=== PATIENT | male | born 1985 | race Caucasian/White ===

== ENCOUNTER 2025-01-12 22:00 | Inpatient (IN) | payer BC, OTHER ==
[~2025-01-12] VITALS: Ht 180.3 cm; Wt 63.7 kg
--- NOTE | 2025-01-12 22:10 | ED.PDOC ---
GI ASSESSMENT HPI Comments 39 year old male presents to the ED via [employer] [facility] due DKA onset today. Patient was transferred from [facility] due to DKA, N-stemi, elevated troponin, last trop was 0.39. Patient states he initially went to the ED due to nausea/vomiting, elevated blood glucose, was concerned for DKA. Patient states he is currently experiencing throat pain. Denies fever, chills, chest pain, shortness of breath, headache, dizziness, blurred vision, dysuria, hematuria, hematemesis. No other symptoms or modifying factors present at this time. Chief Complaint: Nausea/Vomiting Time Seen by MD: 22:00 Reviewed Notes: Medications, Allergies Allergies: Coded Allergies: No Known Drug Allergy (Verified Allergy, Unknown, 01/12/25) Information Source: Patient, Emergency Med Personnel Mode of Arrival: EMS Timing: Hours Duration: Since onset Prehospital treatment: Other Severity: Moderate Recent: None Recent Hx of: None Pain Location: Diffuse Modifying Factors: Nothing Associated sign and symptoms: Nausea, Vomiting Vital Signs Vital Signs Date Time Temp Pulse Resp B/P (MAP) Pulse Ox O2 Delivery O2 Flow Rate FiO2 01/13/25 04:00 95 01/13/25 04:00 15 120/65 (83) 94 01/12/25 22:15 Room Air* 0 21 01/12/25 22:15 99.4 99.4 Physical Exam PHYSICAL EXAM: General: Awake, alert and oriented. No acute distress. Skin: Skin in warm, dry and intact. Appropriate color for ethnicity. HEENT: The head is normocephalic and atraumatic. Conjunctivae are clear without exudates or hemorrhage. Sclera is non-icteric. EOM are intact. No signs of nystagmus. Eyelids are normal in appearance without swelling or lesions. Oral mucosa is pink and moist Neck: The neck is supple with normal range of motion. No JVD. Cardiac: Heart rate and rhythm are normal. No murmurs, gallops, or rubs are auscultated. Respiratory: No signs of respiratory distress. Lung sounds are clear in all lobes bilaterally without rales, rhonchi, or wheezes. Abdominal: Abdomen is soft, non-tender without distention, guarding or rigidity. Bowel sounds are present and normoactive in all four quadrants. Extremities: Upper and lower extremities are atraumatic in appearance without deformity or edema. Neurological: The patient is awake, alert and oriented to person, place, and time with normal speech. Speech is clear. There is no facial asymmetry. Psychiatric: Appropriate mood and affect. Good judgement and insight. Review of Systems: REVIEW OF SYSTEMS: As Stated in HPI Past Medical History PAST MEDICAL HISTORY: DM Surgical History: Denies all surgeries Family History Family History: Reviewed,noncontributory to illness, No family hx of Cancer, No family hx of DM, No family hx of Heart jason, No family hx of HTN, No family hx ofKidney jason, No family hx of Liver jason, No family hx of Lung jason, No family hx of Stroke Social History Smoker: Non-Smoker Alcohol: Denies ETOH Use Drugs: Denies Drug Use Lives In: Home EKG EKG : Pulse Rate (adult): 97 Cardiac Rhythm: NSR Was a procedure done? Was a procedure done?: No GI differential Dx Differential Diagnosis: Other (Differential diagnoses considered include acute ischemic coronary syndrome, aortic dissection, cardiac tamponade, mediastinitis, pulmonary embolus, pneumothorax, tension pneumothorax, esophageal rupture, c oronary artery vasospasm, myocarditis, pericarditis, pneumonia, pulmonary edema, esophageal tear, pancreatitis, aortic stenosis, dilated cardiomyopathy, hypertrophic cardiomyopathy, mitral valve prolapse, malignancy, pleuritis, pneumomediastinum, primary pulmonary hypertension, cholecystitis, esophageal spasm, esophagus, gastritis, GERD, peptic ulcer disease, costochondritis, fibro myalgia, rib fracture, herpes zoster, radicular syndromes, thoracic outlet syndrome, somatization.) X-Ray, Labs, Meds, VS Vital Signs Date Time Temp Pulse Resp B/P (MAP) Pulse Ox O2 Delivery O2 Flow Rate FiO2 01/13/25 04:00 95 01/13/25 04:00 108 15 120/65 (83) 94 01/13/25 03:00 98 21 105/65 (78) 93 01/13/25 02:00 103 19 111/69 (83) 94 01/13/25 01:00 97 25 115/68 (84) 96 01/13/25 00:00 97 15 135/83 (100) 96 01/12/25 23:00 98 15 128/74 (92) 96 01/12/25 22:49 97 01/12/25 22:48 97 01/12/25 22:15 97 15 126/69 (88) 97 01/12/25 22:15 97 15 97 Room Air* 0 21 01/12/25 22:15 99.4 97 16 126/69 (88) 96 99.4 01/12/25 22:03 98.4 97 16 130/75 96 98.4 Lab Test 01/13/25 03:43 01/13/25 01:11 01/13/25 00:59 01/12/25 23:07 Range/Units POC Glucose 201 H 442 *H 70-106 mg/dl Magnesium Level 1.9 1.6-2.6 mg/dL Troponin I High Sensitivity 3535 *H 1609 *H </=54 ng/L Test 01/12/25 22:25 01/12/25 22:19 01/12/25 22:16 01/12/25 22:15 Range/Units Blood Gas Specimen Type Arterial Blood Gas Sample Site Left radial Blood Gas Patient Temperature 37.0 Arterial Blood Date Drawn [id number] Arterial Blood pH 7.533 H 7.350-7.450 Arterial Blood Partial Pressure CO2 31.4 L 35.0-48.0 mmHg Arterial Blood Partial Pressure O2 73.5 L 83.0-108.0 mmHg Arterial Blood HCO3 25.8 21.0-28.0 mmol/L Arterial Blood Oxygen Saturation 95.9 94.0-98.0 % Arterial Blood Base Excess 3.8 H -2.0-3.0 mmol/L Arterial Blood Oxyhemoglobin 94.6 94.0-98.0 % Arterial Blood Carboxyhemoglobin 0.8 0.5-1.5 % Arterial Blood Methemoglobin 0.6 0.0-1.5 % Thomas Test Modified Blood Gas Total Hemoglobin 13.60 13.5-17.5 g/dL Blood Gas Modality Room air FiO2 % 21.0 POC Glucose > 600 *H > 600 *H 70-106 mg/dl Urine Color Colorless Yellow Urine Clarity Clear Clear Urine pH 5.0 5.0-9.0 Urine Specific [place] 1.017 1.001-1.035 Urine Protein Negative Negative Urine Ketones 1+ H Negative Urine Blood 1+ H Negative /uL Urine Nitrite Negative Negative Urine Bilirubin Negative Negative Urine Urobilinogen Normal Negative mg/dL Urine Leukocyte Esterase Negative Negative /uL Urine RBC <1 0 - 3 /hpf Urine Microscopic WBC 1 0-3 /HPF Urine Squamous Epithelial Cells None seen <5 /hpf Urine Bacteria Few H None Seen /hpf Urine Mucus Few None Seen Urine Glucose 4+ H Normal mg/dL Test 01/12/25 22:12 Range/Units White Blood Count 9.5 4.4-10.8 10^3/uL Red Blood Count 3.97 L 4.5-5.90 10^6/uL Hemoglobin 12.9 L 13.5-17.5 g/dL Hematocrit 37.3 L 41.0-53.0 % Mean Corpuscular Volume 93.9 80.0-100.0 fL Mean Corpuscular Hemoglobin 32.4 H 28.0-32.0 pg Mean Corpuscular Hemoglobin Concent 34.5 32.0-36.0 g/dL Red Cell Distribution Width 13.2 11.8-14.3 % Platelet Count 315 140-450 10^3/uL Mean Platelet Volume 6.6 L 6.9-10.8 fL Neutrophils (%) (Auto) 80.6 H 37.0-80.0 % Lymphocytes (%) (Auto) 13.1 10.0-50.0 % Monocytes (%) (Auto) 6.1 0.0-12.0 % Eosinophils (%) (Auto) 0.0 0.0-7.0 % Basophils (%) (Auto) 0.2 0.0-2.0 % Neutrophils # (Auto) 7.6 1.6-8.6 10 ^3/uL Lymphocytes # (Auto) 1.2 0.4-5.4 10 ^3/uL Monocytes # (Auto) 0.6 0-1.3 10 ^3/uL Eosinophils # (Auto) 0 0-0.8 10 ^3/uL Basophils # (Auto) 0 0-0.2 10 ^3/uL Nucleated Red Blood Cells 0.1 % Prothrombin Time 11.6 9.3-11.8 sec Prothrombin Time INR 1.11 0.9-1.15 Activated Partial Thromboplast Time 27.5 24.5-34.5 SEC Sodium Level 126 L 136-145 mmol/L Potassium Level 4.4 3.5-5.1 mmol/L Chloride Level 88 L 98-107 mmol/L Carbon Dioxide Level 24 20-31 mmol/L Anion Gap 14 5-15 Blood Urea Nitrogen 28 H 9-23 mg/dL Creatinine 2.75 H 0.700-1.30 mg/dL Glomerular Filtration Rate Calc 29 >90 mL/min BUN/Creatinine Ratio 10.2 10.0-20.0 Serum Glucose 678 *H 74-106 mg/dL Calcium Level 8.1 L 8.7-10.4 mg/dL Magnesium Level 2.1 1.6-2.6 mg/dL Total Bilirubin 0.7 0.2-1.0 mg/dL Aspartate Amino Transferase (AST) 51 H 13-40 U/L Alanine Aminotransferase (ALT) 25 7-40 U/L Alkaline Phosphatase 94 46-116 U/L Troponin I High Sensitivity 1257 *H </=54 ng/L Total Protein 6.4 5.7-8.2 g/dL Albumin 3.9 3.2-4.8 g/dL Beta-Hydroxybutyric Acid 2.395 H < 0.4 mmol/L Current Medications Medications (Trade) Dose Ordered Sig/Jorge Alberto Route Start Time Stop Time Status Last Admin Ondansetron HCl (Zofran) 4 mg Q4HP PRN IV 01/13/25 04:00 01/14/25 00:26 Insulin Glargine (Lantus) 15 units QAM SC 01/13/25 04:00 01/13/25 04:52 Dextrose/Sodium Chloride 1,000 ml @ 125 mls/hr Q8H ONCE IV 01/13/25 04:00 01/13/25 11:59 DC 01/13/25 04:42 Diagnostic Test (Pha) (Accu-Chek Comfort Curve T) 1 strip IQ4HR 01/13/25 04:00 01/13/25 22:03 Insulin Human Regular (InsuLIN R) IQ4HR SC 01/13/25 04:00 01/14/25 00:08 Hydromorphone HCl (Dilaudid Injection) 0.25 mg Q4HPRN PRN IV 01/13/25 04:00 01/14/25 00:26 Time of 1ST Reevaluation: 22:30 Reevaluation 1ST: Unchanged Patient Education/Counseling: Diagnosis, Treatment, Need For Follow Up Family Education/Counseling: No Family Present SEPSIS Sepsis Screen Physician Orders Abg W/ Co-Ox (01/12/25 22:03) Saline Lock (01/12/25 22:03) Communication Order (01/12/25 22:19) Admit (01/13/25 03:54) Allergies (01/13/25 03:54) Code Status (01/13/25 03:54) Ondansetron Hcl (Zofran) (01/13/25 04:00) Condition: Serious (01/13/25 03:54) Notify Md Of Changes From Base (01/13/25 03:54) Outpatient Coordinator For 24 Hours (01/13/25 03:54) Emergency Dysrhythmia Protocol (01/13/25 03:54) Rhythm Strips Once Every Shift (01/13/25 03:54) Insulin Lantus (Glargine) (Lantus) (01/13/25 04:00) Chest Portable (01/13/25 03:54) Glucose Blood (Accu-Chek Comfort Curve T (01/13/25 04:00) Insulin R (Human) (Insulin R) (01/13/25 04:00) Dextrose 50% Syringe (01/13/25 04:00) Drug Screen (01/13/25 03:54) Urine Sodium (01/13/25 03:54) Urine Creatinine (01/13/25 03:54) Urine Protein (01/13/25 03:54) Kidney (01/13/25 03:54) Hydromorphone Injection (Dilaudid Inject (01/13/25 04:00) Vital Signs Date Time Temp Pulse Resp B/P (MAP) Pulse Ox O2 Delivery O2 Flow Rate FiO2 01/13/25 04:00 95 01/13/25 04:00 108 15 120/65 (83) 94 01/13/25 03:00 98 21 105/65 (78) 93 01/13/25 02:00 103 19 111/69 (83) 94 01/13/25 01:00 97 25 115/68 (84) 96 01/13/25 00:00 97 15 135/83 (100) 96 01/12/25 23:00 98 15 128/74 (92) 96 01/12/25 22:49 97 01/12/25 22:48 97 01/12/25 22:15 97 15 126/69 (88) 97 01/12/25 22:15 97 15 97 Room Air* 0 21 01/12/25 22:15 99.4 97 16 126/69 (88) 96 99.4 01/12/25 22:03 98.4 97 16 130/75 96 98.4 Laboratory Tests Test 01/12/25 22:12 White Blood Count 9.5 10^3/uL (4.4-10.8) Departure 1 Departure Time of Disposition: 01:35 Impression: Primary Impression: NSTEMI (non-ST elevated myocardial infarction) Additional Impression: DKA (diabetic ketoacidosis) Disposition: ADMITTED INPATIENT Condition: Serious Comments Patient admitted to hospitalist service for further treatment, evaluation and monitoring. Critical Care Note Critical Care Time?: No Stability Stability form required: No I personally scribed for KRIS ANN MD ([email or web address]) on 01/12/25 at 22:10. Electronically submitted by Naomi Viramontes ([email or web address]). I personally scribed for KRIS ANN MD ([email or web address]) on 01/12/25 at 22:49. Electronically submitted by Naomi Viramontes ([email or web address]). KRIS ANN MD Jan 12, 2025 22:10
[2025-01-12 22:15] VITALS: PULSE 97; RESP 15; O2SAT 97
[2025-01-12] MEDS: ACCU-CHEK COMFORT CURVE STRIP VI SCH (22:30)
[2025-01-12] MEDS: INSULIN DRIP 100 UNIT/100ML 100 ML IV SCH (22:30)
[2025-01-12] MEDS ORDERED: DEXTROSE (50%) 50ML SYRG IV PRN (22:30)
[2025-01-12 22:44] LABS: Hematocrit 37.3 % (41.0-53.0); Hemoglobin 12.9 g/dL (13.5-17.5); Mean Corpuscular Hemoglobin 32.4 pg (28.0-32.0); Mean Corpuscular Volume 93.9 fL (80.0-100.0); Nucleated Red Blood Cells % 0.1 %
[2025-01-12 22:47] LABS: Urine Protein, UAD Negative (Negative)
[2025-01-12 22:49] LABS: Base Excess 3.8 mmol/L (-2.0-3.0)
--- NOTE | 2025-01-12 22:49 | ECG ---
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
[2025-01-12] MEDS: SODIUM CHLORIDE 0.9% 1,000 ML IV ONE (22:53)
[2025-01-12] MEDS: ONDANSETRON HCL 4 MG/2 ML VIAL IV ONE (22:53)
[2025-01-12 23:02] LABS: Alanine Aminotransferase 25 U/L (7-40); Albumin 3.9 g/dL (3.2-4.8); Alkaline Phosphatase 94 U/L (46-116); Anion Gap 14 (5-15); BUN/Creatinine Ratio 10.2 (10.0-20.0); Bilirubin, Total 0.7 mg/dL (0.2-1.0); Carbon Dioxide 24 mmol/L (20-31); Magnesium 2.1 mg/dL (1.6-2.6); Potassium 4.4 mmol/L (3.5-5.1); Total Protein 6.4 g/dL (5.7-8.2)
[2025-01-12 23:13] LABS: Blood Urea Nitrogen 28 mg/dL (9-23); Calcium 8.1 mg/dL (8.7-10.4); Chloride 88 mmol/L (98-107); Sodium 126 mmol/L (136-145)
[2025-01-12 23:15] LABS: Glucose 678 mg/dL (74-106)
[2025-01-12 23:47] LABS: INR 1.11 (0.9-1.15); Prothrombin Time 11.6 sec (9.3-11.8)
[2025-01-12] MEDS: LIDOCAINE VISCOUS 2% 15ML UD PO ONE (23:57)
[2025-01-12] MEDS: HEPARIN SODIUM (PORCINE) 5000 UNITS/ML 1ML VIAL IV ONE (23:58)
[2025-01-13] VITALS (12 sets, daily range): BP systolic 120–137; BP diastolic 80–89; PULSE 89–108; RESP 10–19; TEMP 98.8–100; O2SAT 65–100
[2025-01-13] MEDS: MAALOX PLUS or MAALOX 30 ML PO ONE (00:20)
[2025-01-13] MEDS: HEPARIN DRIP/D5W 100UNITS/ML 250 ML IV SCH (01:41)
--- NOTE | 2025-01-13 03:44 | DVHHPRES ---
History of Present Illness Resident Creating Document: SHE BE History of Present Illness Patient is a 39-year-old male with past medical history of T1DM, presented to [facility] ED with complaint of via [facility] following transfer from [facility] for management of diabetic ketoacidosis (DKA) and non-ST elevation myocardial infarction (NSTEMI). Patient reports that symptoms began earlier today, prompting his initial ED visit due to nausea, vomiting, and elevated blood glucose levels. He was concerned about the possibility of DKA. He states he was diagnosed with type 1 diabetes mellitus at age 7 and experienced his first episode of DKA approximately 3 years ago. He reports that this current episode feels more severe than his previous one. Patient currently complains of throat pain. He denies fever, chills, chest pain, shortness of breath, headache, dizziness, blurred vision, dysuria, hematuria, or hematemesis. On evaluation in the ED, patient is afebrile, vitals are stable. Initial significant normocytic anemia, creatinine 2.29, AST 45, and lipase 86. On evaluation in the ED, patient is afebrile, vitals are stable. Initial significant normocytic anemia, POC Glucose > 600, Troponin I 1257. The patient was placed NPO, started on Insulin and IV fluids. Patient is admitted for further evaluation and management. Endocrine: Diabetes Past Surgical History elbow surgery Family History: None Smoke: Quit ALCOHOL: heavy Drugs: None Review of Systems Gastrointestinal: Nausea, Vomiting Allergies: Coded Allergies: No Known Drug Allergy (Verified Allergy, Unknown, 01/12/25) Medications Current Medications Medications Dose Ordered Sig/Jorge Alberto Route Start Time Stop Time Status Last Admin Dose Admin Insulin Human (Reg)/Sodium Chloride 100 ml @ 0.5 mls/hr Q24H IV 01/12/25 22:30 01/12/25 22:30 6 MLS/HR Diagnostic Test (Pha) 1 strip Q90MIN 01/12/25 22:30 01/13/25 01:25 1 STRIP Dextrose 50 ml PRN PRN IV 01/12/25 22:30 Heparin Sodium/ Dextrose 250 ml @ 8 mls/hr Q24H IV 01/12/25 23:15 01/13/25 01:41 8 MLS/HR Exam Vital Signs Vital Signs Date Time Temp Pulse Resp B/P (MAP) Pulse Ox O2 Delivery O2 Flow Rate FiO2 01/13/25 02:00 103 19 111/69 (83) 94 01/12/25 22:15 Room Air* 0 21 01/12/25 22:15 99.4 99.4 Exam General Appearance: Cooperative. Well developed. Well nourished. NAD Head Exam: Normal inspection Neck Exam: Normal inspection. Non-tender. Normal alignment Pulmonary/Respiratory: Chest non-tender. Clear bilateral breath sounds, no crackles, no wheezing. Cardiovascular/Chest: Regular rate and rhythm. No murmurs. No JVD. Peripheral Pulses: 2+ Radial (R). 2+ Radial (L). 2+ Pedal (R). 2+ Pedal (L) Abdominal Exam: Normal bowel sounds. Soft. normal abdomen, no visible veins, Nontender. No hepatospenomegaly. No masses Ankle Exam: Negative ankle edema Lower extremities: Negative lower extremity edema Neuro/Mental Status: A&O x4. Coherent. Thoughts/Psych: Normal thought pattern. Appropriate mood and affect. Good judgement and insight Skin Exam: Normal inspection. Normal color. Warm. Dry Labs/Xrays Labs Test 01/13/25 01:11 01/13/25 00:59 01/12/25 22:25 01/12/25 22:15 Range/Units Troponin I High Sensitivity 3535 *H </=54 ng/L POC Glucose 442 *H 70-106 mg/dl Blood Gas Specimen Type Arterial Blood Gas Sample Site Left radial Blood Gas Patient Temperature 37.0 Arterial Blood Date Drawn [id number] Arterial Blood pH 7.533 H 7.350-7.450 Arterial Blood Partial Pressure CO2 31.4 L 35.0-48.0 mmHg Arterial Blood Partial Pressure O2 73.5 L 83.0-108.0 mmHg Arterial Blood HCO3 25.8 21.0-28.0 mmol/L Arterial Blood Oxygen Saturation 95.9 94.0-98.0 % Arterial Blood Base Excess 3.8 H -2.0-3.0 mmol/L Arterial Blood Oxyhemoglobin 94.6 94.0-98.0 % Arterial Blood Carboxyhemoglobin 0.8 0.5-1.5 % Arterial Blood Methemoglobin 0.6 0.0-1.5 % Thomas Test Modified Blood Gas Total Hemoglobin 13.60 13.5-17.5 g/dL Blood Gas Modality Room air FiO2 % 21.0 Urine Color Colorless Yellow Urine Clarity Clear Clear Urine pH 5.0 5.0-9.0 Urine Specific [place] 1.017 1.001-1.035 Urine Protein Negative Negative Urine Ketones 1+ H Negative Urine Blood 1+ H Negative /uL Urine Nitrite Negative Negative Urine Bilirubin Negative Negative Urine Urobilinogen Normal Negative mg/dL Urine Leukocyte Esterase Negative Negative /uL Urine RBC <1 0 - 3 /hpf Urine Microscopic WBC 1 0-3 /HPF Urine Squamous Epithelial Cells None seen <5 /hpf Urine Bacteria Few H None Seen /hpf Urine Mucus Few None Seen Urine Glucose 4+ H Normal mg/dL Test 01/12/25 22:12 Range/Units White Blood Count 9.5 4.4-10.8 10^3/uL Red Blood Count 3.97 L 4.5-5.90 10^6/uL Hemoglobin 12.9 L 13.5-17.5 g/dL Hematocrit 37.3 L 41.0-53.0 % Mean Corpuscular Volume 93.9 80.0-100.0 fL Mean Corpuscular Hemoglobin 32.4 H 28.0-32.0 pg Mean Corpuscular Hemoglobin Concent 34.5 32.0-36.0 g/dL Red Cell Distribution Width 13.2 11.8-14.3 % Platelet Count 315 140-450 10^3/uL Mean Platelet Volume 6.6 L 6.9-10.8 fL Neutrophils (%) (Auto) 80.6 H 37.0-80.0 % Lymphocytes (%) (Auto) 13.1 10.0-50.0 % Monocytes (%) (Auto) 6.1 0.0-12.0 % Eosinophils (%) (Auto) 0.0 0.0-7.0 % Basophils (%) (Auto) 0.2 0.0-2.0 % Neutrophils # (Auto) 7.6 1.6-8.6 10 ^3/uL Lymphocytes # (Auto) 1.2 0.4-5.4 10 ^3/uL Monocytes # (Auto) 0.6 0-1.3 10 ^3/uL Eosinophils # (Auto) 0 0-0.8 10 ^3/uL Basophils # (Auto) 0 0-0.2 10 ^3/uL Nucleated Red Blood Cells 0.1 % Prothrombin Time 11.6 9.3-11.8 sec Prothrombin Time INR 1.11 0.9-1.15 Activated Partial Thromboplast Time 27.5 24.5-34.5 SEC Sodium Level 126 L 136-145 mmol/L Potassium Level 4.4 3.5-5.1 mmol/L Chloride Level 88 L 98-107 mmol/L Carbon Dioxide Level 24 20-31 mmol/L Anion Gap 14 5-15 Blood Urea Nitrogen 28 H 9-23 mg/dL Creatinine 2.75 H 0.700-1.30 mg/dL Glomerular Filtration Rate Calc 29 >90 mL/min BUN/Creatinine Ratio 10.2 10.0-20.0 Serum Glucose 678 *H 74-106 mg/dL Calcium Level 8.1 L 8.7-10.4 mg/dL Magnesium Level 2.1 1.6-2.6 mg/dL Total Bilirubin 0.7 0.2-1.0 mg/dL Aspartate Amino Transferase (AST) 51 H 13-40 U/L Alanine Aminotransferase (ALT) 25 7-40 U/L Alkaline Phosphatase 94 46-116 U/L Total Protein 6.4 5.7-8.2 g/dL Albumin 3.9 3.2-4.8 g/dL Beta-Hydroxybutyric Acid 2.395 H < 0.4 mmol/L SEPSIS Sepsis Screen Date sepsis recognized/suspect: Jan 12, 2025 Time Sepsis recognized/suspect: 2214 Recent Procedure: No On Antibiotic Therapy: No Respiratory Rate >20: No Heart Rate >90: Yes Temp<36 C (96.8 F) or >38.3 C: No SBP <90 or MAP <65 mmHG: No New Acute Mental Status Change: No Is the patient on CPAP, BIPAP,: No Physician Orders Abg W/ Co-Ox (01/12/25 22:03) Saline Lock (01/12/25 22:03) Communication Order (01/12/25 22:19) Insulin Drip 100 Unit/100ml (Myxredlin 1 (01/12/25 22:30) Glucose Blood (Accu-Chek Comfort Curve T (01/12/25 22:30) Insulin Drip Protocol (01/12/25 22:20) Dextrose 50% Syringe (01/12/25 22:30) Platelet Monitoring (01/12/25 23:13) Heparin Per Standardized Proce (01/12/25 23:13) Discontinue All Im Injections (01/12/25 23:13) Heparin Drip/D5w 100units/Ml (01/12/25 23:15) Stat Ekg For Chest Pain (01/12/25 23:13) PTPTT (01/13/25 07:30) Vital Signs Date Time Temp Pulse Resp B/P (MAP) Pulse Ox O2 Delivery O2 Flow Rate FiO2 01/13/25 02:00 103 19 111/69 (83) 94 01/13/25 01:00 97 25 115/68 (84) 96 01/13/25 00:00 97 15 135/83 (100) 96 01/12/25 23:00 98 15 128/74 (92) 96 01/12/25 22:49 97 01/12/25 22:48 97 01/12/25 22:15 97 15 126/69 (88) 97 01/12/25 22:15 97 15 97 Room Air* 0 21 01/12/25 22:15 99.4 97 16 126/69 (88) 96 99.4 01/12/25 22:03 98.4 97 16 130/75 96 98.4 Laboratory Tests Test 01/12/25 22:12 White Blood Count 9.5 10^3/uL (4.4-10.8) Medications Medications Dose Ordered Sig/Jorge Alberto Route Start Time Stop Time Status Last Admin Dose Admin Al Hydrox/Mg Hydrox/Simethicone 30 ml ONCE ONCE PO 01/12/25 22:15 01/12/25 22:16 DC 01/13/25 00:20 30 ML Diagnostic Test (Pha) 1 strip Q90MIN 01/12/25 22:30 01/13/25 01:25 1 STRIP Heparin Sodium (Porcine) 4,000 units ONCE ONCE IV 01/12/25 23:15 01/12/25 23:23 DC 01/12/25 23:58 4,000 UNITS Heparin Sodium/ Dextrose 250 ml @ 8 mls/hr Q24H IV 01/12/25 23:15 01/13/25 01:41 8 MLS/HR Insulin Human (Reg)/Sodium Chloride 100 ml @ 0.5 mls/hr Q24H IV 01/12/25 22:30 01/12/25 22:30 6 MLS/HR Lidocaine HCl 10 ml ONCE ONCE PO 01/12/25 22:15 01/12/25 22:16 DC 01/12/25 23:57 10 ML Ondansetron HCl 4 mg ONCE ONCE IV 01/12/25 22:45 01/12/25 22:46 DC 01/12/25 22:53 4 MG Sodium Chloride 1,000 ml @ 1,000 mls/hr Q1H ONCE IV 01/12/25 22:15 01/12/25 23:14 DC 01/12/25 22:53 1,000 MLS/HR Assessment/Plan Assessment/Plan DKA History of Type 1 diabetes mellitus POC glucose : >600 -> >600 -> 442 SSI mod q4 Dilaudid 0.25 MG IV q4h prn Insulin lantus 15 units Moderate Insulin SS CBC, CMP serum osmolality ALEA due to VMN Kidney US pending NSTEMI, likely type 2 EKG: Sinus rhythm. ST elev, probable normal early repol pattern Mg Troponin 1609 -> 3535, trending up Chest X-ray pending Heparin Drip IV 8 MLS/HR Cardiology consult Diet: NPO Goals of care: Full code, discussed for >16 minutes on 01/13/25 Plan discussed with patient Plan discussed with Dr. Gann Plan discussed with: Patient Date of Service: Jan 13, 2025 Billing Provider: ELVIA GANN MD Common Visit Codes: [id number] INP/OBS CARE (HIGH) SHE BE RESIDENT Jan 13, 2025 03:44 TANA NGO RESIDENT Jan 13, 2025 08:12 ELVIA GANN MD Jan 13, 2025 08:44
[2025-01-13] MEDS ORDERED: DEXTROSE (50%) 50ML SYRG IV PRN (04:00)
[2025-01-13] MEDS: ACCU-CHEK COMFORT CURVE STRIP VI SCH (04:40)
[2025-01-13] MEDS: D5W/SOD CHL 0.45% 1,000 ML IV ONE (04:42)
[2025-01-13 04:50] LABS: Hematocrit 36.0 % (41.0-53.0); Hemoglobin 12.9 g/dL (13.5-17.5); Mean Corpuscular Hemoglobin 32.6 pg (28.0-32.0); Mean Corpuscular Volume 90.8 fL (80.0-100.0); Nucleated Red Blood Cells % 0.0 %
[2025-01-13] MEDS: INSULIN LANTUS (GLARGINE) 1 /0.01ml (100units/ml) SC SCH (04:52)
[2025-01-13] MEDS: InsuLIN REG 1unit/0.01ml Soln (100units/ml) SC SCH (04:53)
--- NOTE | 2025-01-13 05:21 | DVH ---
CHEST RADIOGRAPH Indication: chest pain Technique: Single frontal view of the chest was obtained COMPARISON: XR CHEST 1 VIEW on DOS: 01/12/25 FINDINGS: Lines and Tubes: None Lungs: Clear Pleura: No effusion. No pneumothorax. Cardiomediastinal contours: Unremarkable Bones: Unremarkable IMPRESSION: 1. No acute disease.
[2025-01-13 05:24] LABS: Alanine Aminotransferase 25 U/L (7-40); Albumin 3.9 g/dL (3.2-4.8); Alkaline Phosphatase 80 U/L (46-116); Anion Gap 9 (5-15); BUN/Creatinine Ratio 14.4 (10.0-20.0); Potassium 3.9 mmol/L (3.5-5.1); Sodium 139 mmol/L (136-145); Total Protein 6.1 g/dL (5.7-8.2)
[2025-01-13 05:25] LABS: Bilirubin, Total 0.7 mg/dL (0.2-1.0)
[2025-01-13 05:26] LABS: Blood Urea Nitrogen 30 mg/dL (9-23); Calcium 8.5 mg/dL (8.7-10.4); Carbon Dioxide 32 mmol/L (20-31); Chloride 98 mmol/L (98-107); Glucose 134 mg/dL (74-106)
--- NOTE | 2025-01-13 05:39 | ECG ---
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
--- NOTE | 2025-01-13 08:08 | DVH ---
INDICATION: sukh TECHNIQUE: Multiple real-time sonographic images of the kidneys and bladder were obtained. COMPARISON: None FINDINGS: The right kidney measures 11 cm in length, which is normal in size. There is normal echogen icity of the right kidney. No hydronephrosis. The left kidney measures 11 cm in length, which is normal in size. There is normal echogenicity of th e left kidney. No hydronephrosis. No large intraluminal masses are seen in the bladder. The prostate measures 6.4 x 2.3 x 3.9 cm. IMPRESSION: 1. Normal sonographic appearance of the kidneys. No hydronephrosis. 2. Prostatomegaly. Correlate with PSA.
[2025-01-13 08:11] LABS: INR 1.09 (0.9-1.15); Partial Thromboplastin Time 59.3 SEC (24.5-34.5); Prothrombin Time 11.5 sec (9.3-11.8)
[2025-01-13] MEDS: ONDANSETRON HCL 4 MG/2 ML VIAL IV PRN (08:45)
[2025-01-13] MEDS: HYDROmorphone HCL 2 MG/ML VL/or syr IV PRN (08:45)
--- NOTE | 2025-01-13 10:13 | DVHINCON2 ---
Date Seen: Jan 13, [address] Hay Reason for Consultation Elevated troponin History of Present Illness Conner Fowler is a 39-year-old male patient who presents to the ED with chief complaint of nausea and nonbloody vomiting with food content emesis which started a proximally two days before his admission associated with dyspnea and functional class for that initiated day of his admission, prompting his visit to the ED. Patient reports he believes symptoms were triggered by binge drinking (10 beers and multiple shots on Friday), which made him vomit multiple times having burning sensation in his throat, fasting for two days, not able to hold down any food or liquid items. Patient presented similar symptoms approximately five years ago when he was diagnosed with DKA where he was diagnosed with NSTEMI in completed coronary angiography with no stents placed. Denies any other associated symptom. During ED visit patient was diagnosed with HHS, required insulin drip and heparin drip due to NSTEMI. Cardiology consulted for elevated troponin. EKG in ED showed sinus rhythm with diffuse ST elevation with TN depression. Past medical history: Diabetes type 1 diagnosed at year age [age], dyslipidemia, previous admission due to DKA five years ago with coronary angiography with no stents placed, left femur fracture with conservative treatment. Surgical history: Coronary angiography five years ago with no stents placed. Left elbow surgery Family history: Father had prostate cancer Social history: Lives in [place] with family (next of kin is father). Ex marijuana abuse. Occasionally drinks alcohol (2-3 drinks during weekends). Denies current tobacco and other drug abuse. Allergies: Environmental Home medication: Insulin (Lantus 30 units and Humalog with sliding scale). Patient seen and examined at bedside. Currently has no new complaints. Past Medical History Per HPI Past Surgical History Per HPI Family History Per HPI Social History Per HPI Allergies: Coded Allergies: No Known Drug Allergy (Verified Allergy, Unknown, 01/12/25) Current Medications Current Medications Medications (Trade) Dose Ordered Sig/Jorge Alberto Route PRN Reason Start Time Stop Time Status Last Admin Insulin Human (Reg)/Sodium Chloride 100 ml @ 0.5 mls/hr Q24H IV 01/12/25 22:30 01/13/25 05:53 DC 01/12/25 22:30 Diagnostic Test (Pha) (Accu-Chek Comfort Curve T) 1 strip Q90MIN 01/12/25 22:30 01/13/25 05:53 DC 01/13/25 03:44 Dextrose 50 ml PRN PRN IV BG LESS Than 70 AND CALL MD 01/12/25 22:30 01/13/25 05:53 DC Heparin Sodium/ Dextrose 250 ml @ 8 mls/hr Q24H IV 01/12/25 23:15 01/13/25 01:41 Ondansetron HCl (Zofran) 4 mg Q4HP PRN IV NAUSEA / VOMITING 01/13/25 04:00 01/13/25 08:45 Insulin Glargine (Lantus) 15 units QAM SC 01/13/25 04:00 01/13/25 04:52 Diagnostic Test (Pha) (Accu-Chek Comfort Curve T) 1 strip IQ4HR 01/13/25 04:00 01/13/25 08:00 Insulin Human Regular (InsuLIN R) IQ4HR SC 01/13/25 04:00 01/13/25 08:00 Dextrose 50 ml UD PRN IV Blood Sugar LESS THAN 60 01/13/25 04:00 Hydromorphone HCl (Dilaudid Injection) 0.25 mg Q4HPRN PRN IV SEVERE PAIN (7-10 PAIN SCALE) 01/13/25 04:00 01/13/25 08:45 Review of Systems Per HPI Vital Signs Vital Signs Date Time Temp Pulse Resp B/P (MAP) Pulse Ox O2 Delivery O2 Flow Rate FiO2 01/13/25 09:06 97 16 95 Room Air* 0 21 01/13/25 08:45 125/77 01/13/25 08:00 99.0 99.0 Physical Exam Patient lying in bed, in no acute distress General: Lucid, afebrile, mucosae are dry Cardiovascular: Normal S1 and S2. No murmurs, gallops or rubs Respiratory: Normal ventilation mechanics. Clear lung sounds on auscultation Abdomen: Soft, nontender, no organomegaly, normal bowel sounds MSK/skin: Mobilizes 4 limbs. Skin is dry and warm Neurological: Oriented in 3 spheres. No motor no sensitive deficits. Pupils are isocoric and reactive Labs/Diagnostic Data Labs Test 01/13/25 08:31 01/13/25 07:25 01/13/25 04:37 01/13/25 01:11 Range/Units POC Glucose 137 H 70-106 mg/dl Prothrombin Time 11.5 9.3-11.8 sec Prothrombin Time INR 1.09 0.9-1.15 Activated Partial Thromboplast Time 59.3 H 24.5-34.5 SEC Troponin I High Sensitivity 4522 *H </=54 ng/L White Blood Count 8.2 4.4-10.8 10^3/uL Red Blood Count 3.97 L 4.5-5.90 10^6/uL Hemoglobin 12.9 L 13.5-17.5 g/dL Hematocrit 36.0 L 41.0-53.0 % Mean Corpuscular Volume 90.8 80.0-100.0 fL Mean Corpuscular Hemoglobin 32.6 H 28.0-32.0 pg Mean Corpuscular Hemoglobin Concent 35.9 32.0-36.0 g/dL Red Cell Distribution Width 12.9 11.8-14.3 % Platelet Count 305 140-450 10^3/uL Mean Platelet Volume 6.1 L 6.9-10.8 fL Neutrophils (%) (Auto) 83.6 H 37.0-80.0 % Lymphocytes (%) (Auto) 8.8 L 10.0-50.0 % Monocytes (%) (Auto) 7.2 0.0-12.0 % Eosinophils (%) (Auto) 0.2 0.0-7.0 % Basophils (%) (Auto) 0.2 0.0-2.0 % Neutrophils # (Auto) 6.8 1.6-8.6 10 ^3/uL Lymphocytes # (Auto) 0.7 0.4-5.4 10 ^3/uL Monocytes # (Auto) 0.6 0-1.3 10 ^3/uL Eosinophils # (Auto) 0 0-0.8 10 ^3/uL Basophils # (Auto) 0 0-0.2 10 ^3/uL Nucleated Red Blood Cells 0.0 % Sodium Level 139 # 136-145 mmol/L Potassium Level 3.9 3.5-5.1 mmol/L Chloride Level 98 # 98-107 mmol/L Carbon Dioxide Level 32 H 20-31 mmol/L Anion Gap 9 5-15 Blood Urea Nitrogen 30 H 9-23 mg/dL Creatinine 2.08 H 0.700-1.30 mg/dL Glomerular Filtration Rate Calc 41 >90 mL/min BUN/Creatinine Ratio 14.4 10.0-20.0 Serum Glucose 134 #H 74-106 mg/dL Serum Osmolality 300 H 278-298 mOsm/kg Calcium Level 8.5 L 8.7-10.4 mg/dL Total Bilirubin 0.7 0.2-1.0 mg/dL Aspartate Amino Transferase (AST) 63 H 13-40 U/L Alanine Aminotransferase (ALT) 25 7-40 U/L Alkaline Phosphatase 80 46-116 U/L Total Protein 6.1 5.7-8.2 g/dL Albumin 3.9 3.2-4.8 g/dL Magnesium Level 1.9 1.6-2.6 mg/dL Test 01/12/25 22:25 01/12/25 22:15 01/12/25 22:12 Range/Units Blood Gas Specimen Type Arterial Blood Gas Sample Site Left radial Blood Gas Patient Temperature 37.0 Arterial Blood Date Drawn [id number] Arterial Blood pH 7.533 H 7.350-7.450 Arterial Blood Partial Pressure CO2 31.4 L 35.0-48.0 mmHg Arterial Blood Partial Pressure O2 73.5 L 83.0-108.0 mmHg Arterial Blood HCO3 25.8 21.0-28.0 mmol/L Arterial Blood Oxygen Saturation 95.9 94.0-98.0 % Arterial Blood Base Excess 3.8 H -2.0-3.0 mmol/L Arterial Blood Oxyhemoglobin 94.6 94.0-98.0 % Arterial Blood Carboxyhemoglobin 0.8 0.5-1.5 % Arterial Blood Methemoglobin 0.6 0.0-1.5 % Thomas Test Modified Blood Gas Total Hemoglobin 13.60 13.5-17.5 g/dL Blood Gas Modality Room air FiO2 % 21.0 Urine Color Colorless Yellow Urine Clarity Clear Clear Urine pH 5.0 5.0-9.0 Urine Specific [place] 1.017 1.001-1.035 Urine Protein Negative Negative Urine Ketones 1+ H Negative Urine Blood 1+ H Negative /uL Urine Nitrite Negative Negative Urine Bilirubin Negative Negative Urine Urobilinogen Normal Negative mg/dL Urine Leukocyte Esterase Negative Negative /uL Urine RBC <1 0 - 3 /hpf Urine Microscopic WBC 1 0-3 /HPF Urine Squamous Epithelial Cells None seen <5 /hpf Urine Bacteria Few H None Seen /hpf Urine Mucus Few None Seen Urine Glucose 4+ H Normal mg/dL Beta-Hydroxybutyric Acid 2.395 H < 0.4 mmol/L Assessment NSTEMI type 2 Probable pericarditis Ruled out acute coronary syndrome ALEA hemodynamically mediated (VMN) HHS Diabetes insulin requiring - uncontrolled (hemoglobin A1c 9.1%) Dyslipidemia Normocytic anemia Prostatomegaly Plan/Recommendation EKG shows diffuse ST elevation with positive concavity and TN depression. Troponin level are high up trending ([id number]). Patient does not have chest pain but has nausea, vomiting and dyspnea which would could be anginal equivalent. Indicated left heart catheterization. Patient require heparin drip, aspirin and atorvastatin during ED visit until coronary angiography was completed Completed coronary angiography which showed nonobstructive coronary lesions, normal end-diastolic left ventricular pressures. Ordered echocardiogram to evaluate pericardial disease. Patient will benefit from medical therapy of cardiovascular risk factors. HHS management per primary team Goals of care discussed with patient for over 18 minutes: Full code status Discussed plan with Dr. Hicks, patient and nurses: Due to up trending troponin level in questionable anginal equivalent symptoms (nausea, vomiting and dyspnea), patient was placed on heparin drip and indicated coronary angiography (patient agreed with therapy), which ruled out acute coronary syndrome. Awaiting results of echocardiogram to evaluate pericardial disease. Patient has poor prognosis due to poorly controlled diabetes. Plan discussed with: Patient, Other (Nurses) NYHA Physical activity limitations: Class3(Marked) ordinary Date of Service: Jan 13, 2025 Billing Provider: JADE HICKS Sr., MD Cardiology Common Codes: [id number] INP/OBS CARE (High) Cardiology Secondary Visit Cod: [email or web address] CARE PLAN 30 MINUTES FABIAN SOLOMON RESIDENT Jan 13, 2025 10:13
[2025-01-13] MEDS: LIDOCAINE VISCOUS 2% 15ML UD PO ONE (11:15)
[2025-01-13] MEDS: SODIUM CHLORIDE 0.9% 1,000 ML IV ONE (11:15)
[2025-01-13 12:10] LABS: Lipase 20.0 U/L (12-53)
[2025-01-13 12:11] LABS: Magnesium 2.0 mg/dL (1.6-2.6)
[2025-01-13 13:26] LABS: Triglycerides 76.0 mg/dL (< 150)
[2025-01-13 13:28] LABS: Cholesterol 133.0 mg/dL (< 200)
[2025-01-13] MEDS: IODIXANOL 320MG/ML 100ML BTL IV ONE (13:34)
[2025-01-13 13:45] LABS: HDL Cholesterol 66.0 mg/dL (40-59)
[2025-01-13] MEDS: ANGIOMAX 250 MG VIAL IV ONE (14:15)
[2025-01-13] MEDS: SODIUM CHL 0.9% 50 ML ONE (14:16)
[2025-01-13] MEDS: VERAPAMIL 2.5MG/ML INJ 2ML VIAL IV ONE (14:16)
[2025-01-13] MEDS: fentaNYL CITRATE 100 MCG/2 ML VL ONE (14:16)
[2025-01-13] MEDS: MIDAZOLAM HCL 2MG/2ML 2ml VIAL (1mg/ml) ONE (14:16)
[2025-01-13] MEDS: LIDOCAINE 2%HCL (LOCAL ANESTH.) INJ 20ML MDV ONE (14:17)
--- NOTE | 2025-01-13 14:51 | DVHOP2 ---
Operative Report - 2 Report Details Date: 01/13/25 Preop Diagnosis: CAD Postop Diagnosis: Normal coronaries Surgeon: Jade Pelayo MD Anesthesiologist: Conscious sedation Anesthesia: Mac, Local Consent: The patient was informed of the risks and benefits of the procedure. These include but are not limited to complications of anesthesia, postoperative infection, incomplete relief of symptoms, recurrence of symptoms, damage to blood vessels, nerves and tendons, deep venous thrombosis, pulmonary embolism and possible need for repeat surgery in the future. Complications: No complications Findings: Normal coronaries Indications for Surgery: Abnormal troponins Name of Procedure Performed Left heart catheterization. Bilateral cine coronary angiography. Left ventriculography. Procedure Details Procedure Details: Prior local anesthesia with 2% lidocaine to the right wrist and full informed consent obtained the patient was prepped and draped in usual fashion followed by placement of a six Hungarian sheath into the radial artery. A Blake catheter was used for ventriculography and cannulation of both right and left coronary ostia. No complications Hemodynamics: Aortic blood pressure was 110/70. End-diastolic pressure was five. There was no gradient across the aortic valve on pullback. Coronary anatomy: The RCA is large and normal. The PDA in the posterolateral branches are normal. Left main is large and normal. Left anterior descending is large and normal with two diagonals free of significant disease. The circumflex is large with two marginals free of significant disease. Ventriculography in the MCCABE projection shows an EF of 60%. Impression: Normal left ventricular end-diastolic pressure at rest with normal ejection fraction. No significant coronary artery disease. Recommendations: Medical therapy is warranted continue risk factor modification. Condition Good Disposition Date of Service: Jan 13, 2025 Billing Provider: JADE PELAYO Sr., MD Cardiology Common Codes: [id number] INP/OBS CARE (High) Cardiology Procedure Codes: 51819-FQAI HEART CATH W/INTRA INJ JADE PELAYO Sr., MD Jan 13, 2025 14:51
--- NOTE | 2025-01-13 15:13 | DVHPN2 ---
Subjective This patient was admitted by [facility] hospitalist/resident. I am assuming the care of the patient from today onwards. 39-year-old male with a known history of type 1 diabetes mellitus since the age of [age], presented to the hospital at [facility] with the nausea and vomiting found to have NSTEMI as well as diabetes ketoacidosis. Patient was air lifted by the 24/7 Card air. Patient already has a coronary angiogram which shows normal coronary arteries. 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 Medications Current Medications Medications Dose Ordered Sig/Jorge Alberto Route Start Time Stop Time Status Last Admin Dose Admin Heparin Sodium/ Dextrose 250 ml @ 8 mls/hr Q24H IV 01/12/25 23:15 01/13/25 01:41 8 MLS/HR Ondansetron HCl 4 mg Q4HP PRN IV 01/13/25 04:00 01/13/25 08:45 4 MG Insulin Glargine 15 units QAM SC 01/13/25 04:00 01/13/25 04:52 15 UNITS Diagnostic Test (Pha) 1 strip IQ4HR 01/13/25 04:00 01/13/25 12:14 1 STRIP Insulin Human Regular IQ4HR SC 01/13/25 04:00 01/13/25 12:00 2 UNITS Dextrose 50 ml UD PRN IV 01/13/25 04:00 Hydromorphone HCl 0.25 mg Q4HPRN PRN IV 01/13/25 04:00 01/13/25 08:45 0.25 MG Aspirin 81 mg DAILY PO 01/14/25 10:00 Atorvastatin Calcium 40 mg HS PO 01/13/25 22:00 Laboratory Results Laboratory Tests 01/13/25 04:37 Chemistry Test 01/12/25 22:12 01/13/25 01:11 01/13/25 04:37 01/13/25 11:36 Albumin 3.9 g/dL (3.2-4.8) 3.9 g/dL (3.2-4.8) Calcium Level 8.1 mg/dL (8.7-10.4) L 8.5 mg/dL (8.7-10.4) L Pending Magnesium Level 2.1 mg/dL (1.6-2.6) 1.9 mg/dL (1.6-2.6) 2.0 mg/dL (1.6-2.6) Total Protein 6.4 g/dL (5.7-8.2) 6.1 g/dL (5.7-8.2) Phosphorus Level 2.7 mg/dL (2.4-5.1) Coagulation Test 01/12/25 22:12 01/13/25 07:25 Prothrombin Time 11.6 sec (9.3-11.8) 11.5 sec (9.3-11.8) Prothrombin Time INR 1.11 (0.9-1.15) 1.09 (0.9-1.15) Activated Partial Thromboplast Time 27.5 SEC (24.5-34.5) 59.3 SEC (24.5-34.5) H Lipid panel Test 01/13/25 11:36 Cholesterol Level 133 mg/dL (< 200) HDL Cholesterol 66 mg/dL (40-59) H Lipase 20 U/L (12-53) Triglycerides Level 76 mg/dL (< 150) LFT Test 01/12/25 22:12 01/13/25 04:37 Alanine Aminotransferase (ALT) 25 U/L (7-40) 25 U/L (7-40) Alkaline Phosphatase 94 U/L (46-116) 80 U/L (46-116) Aspartate Amino Transferase (AST) 51 U/L (13-40) H 63 U/L (13-40) H Total Bilirubin 0.7 mg/dL (0.2-1.0) 0.7 mg/dL (0.2-1.0) HgA1c, TSH Test 01/13/25 11:36 Hemoglobin A1c 9.1 % A1C (<5.7) H Thyroid Stimulating Hormone (TSH) 28.55 uIU/mL (0.55-4.78) H Urinalysis Test 01/12/25 22:15 Urine Color Colorless (Yellow) Urine Clarity Clear (Clear) Urine pH 5.0 (5.0-9.0) Urine Specific [place] 1.017 (1.001-1.035) Urine Protein Negative (Negative) Urine Ketones 1+ (Negative) H Urine Blood 1+ /uL (Negative) H Urine Nitrite Negative (Negative) Urine Bilirubin Negative (Negative) Urine Urobilinogen Normal mg/dL (Negative) Urine Leukocyte Esterase Negative /uL (Negative) Urine RBC <1 /hpf (0 - 3) Urine Microscopic WBC 1 /HPF (0-3) Urine Squamous Epithelial Cells None seen /hpf (<5) Urine Bacteria Few /hpf (None Seen) H Urine Mucus Few (None Seen) Urine Glucose 4+ mg/dL (Normal) H Blood Gas Results Test 01/12/25 22:25 Arterial Blood pH 7.533 (7.350-7.450) FiO2 % 21.0 Assessment/Plan Assessment/Plan 39-year-old male with a known history of type 1 diabetes mellitus insulin- dependent who presented to the hospital at [facility] for nausea and vomiting found to have NSTEMI as well as DKA eventually patient was transferred for higher level of care to [facility]. 1. Diabetic ketoacidosis, resolved currently off of insulin drip 2. Elevated troponin suspect NSTEMI type 1, status post coronary angiogram showing no significant coronary artery disease 3. Acute kidney injury suspected secondary to vasomotor nephropathy -continue medical management including aspirin statin, follow up Cardiology recommendation, resume home dose of insulin Lantus. Plan discussed with: Patient Date of Service: Jan 13, 2025 Billing Provider: KRISTI LINO MD Common Visit Codes: NOT BILLABLE KRISTI LINO MD Jan 13, 2025 15:13
[2025-01-13 15:34] LABS: Potassium 3.8 mmol/L (3.5-5.1); Sodium 140 mmol/L (136-145)
[2025-01-13 15:35] LABS: Anion Gap 12 (5-15); Carbon Dioxide 30 mmol/L (20-31)
[2025-01-13 15:36] LABS: Calcium 8.3 mg/dL (8.7-10.4); Chloride 98 mmol/L (98-107)
[2025-01-13 15:41] LABS: BUN/Creatinine Ratio 12.6 (10.0-20.0); Blood Urea Nitrogen 24 mg/dL (9-23); Glucose 150 mg/dL (74-106)
[2025-01-13 18:37] LABS: Chloride 100 mmol/L (98-107); Potassium 3.9 mmol/L (3.5-5.1); Sodium 139 mmol/L (136-145)
[2025-01-13 18:38] LABS: Anion Gap 7 (5-15)
[2025-01-13 18:43] LABS: BUN/Creatinine Ratio 11.0 (10.0-20.0); Blood Urea Nitrogen 17 mg/dL (9-23); Glucose 95 mg/dL (74-106)
[2025-01-13 18:44] LABS: Calcium 8.1 mg/dL (8.7-10.4); Carbon Dioxide 32 mmol/L (20-31)
[2025-01-13] MEDS: ATORVASTATIN 20 MG TAB PO SCH (21:00)
[2025-01-14] VITALS (7 sets, daily range): BP systolic 124–146; BP diastolic 87–93; PULSE 92–110; RESP 18–19; TEMP 97.6–99; O2SAT 92–95
[2025-01-14 00:33] LABS: COVID19 ANTIGEN SOFIA FIA NEGATIVE (NEGATIVE)
[2025-01-14 01:40] LABS: Chloride 98 mmol/L (98-107); Potassium 4.0 mmol/L (3.5-5.1); Sodium 137 mmol/L (136-145)
[2025-01-14 01:41] LABS: Anion Gap 8 (5-15)
[2025-01-14 01:45] LABS: Calcium 8.4 mg/dL (8.7-10.4); Carbon Dioxide 31 mmol/L (20-31)
[2025-01-14 01:47] LABS: Glucose 165 mg/dL (74-106)
[2025-01-14 02:04] LABS: BUN/Creatinine Ratio 12.3 (10.0-20.0); Blood Urea Nitrogen 17 mg/dL (9-23)
[2025-01-14 05:17] LABS: Protein, Urine 34.0 mg/dL (1-14)
[2025-01-14 05:19] LABS: Opiate Scree,Urine Neg (NEGATIVE)
[2025-01-14 05:20] LABS: Cannabinoid Screen, Urine Neg (NEGATIVE)
[2025-01-14 05:25] LABS: Amphetamine Screen, Urine Neg (NEGATIVE); Barbiturate Scree,Urine Neg (NEGATIVE); Benzodiazephine Screen, Urine Pos (NEGATIVE); Cocaine Screen, Urine Neg (NEGATIVE); Phencyclidine Screen, Urine Neg (NEGATIVE)
[2025-01-14] MEDS ORDERED: INSLISPI SC (06:10)
[2025-01-14] MEDS ORDERED: INSLANTI SC (06:10)
[2025-01-14 06:21] LABS: Potassium 3.8 mmol/L (3.5-5.1); Sodium 138 mmol/L (136-145)
[2025-01-14 06:22] LABS: Anion Gap 9 (5-15)
[2025-01-14 06:25] LABS: Calcium 8.7 mg/dL (8.7-10.4); Carbon Dioxide 32 mmol/L (20-31); Chloride 97 mmol/L (98-107)
[2025-01-14 06:27] LABS: BUN/Creatinine Ratio 10.9 (10.0-20.0); Blood Urea Nitrogen 15 mg/dL (9-23)
[2025-01-14 06:29] LABS: Glucose 150 mg/dL (74-106)
--- NOTE | 2025-01-14 09:38 | DVHPNRES ---
Progress Note Date Seen: Jan 14, 2025 Resident Creating Document: FABIAN SOLOMON RESIDENT Medical Necessity Reason Pt with a Central, PICC or Fol: No Subjective Review of Systems Conner Fowler is a 39-year-old male patient who presents to the ED transfered from [facility] with diagnosis of DKA symptomatic with nausea and nonbloody vomiting with food content emesis which started approximately two days before his admission associated with dyspnea and functional class for that initiated day of his admission, prompting his visit to the ED. Patient reports he believes symptoms were triggered by binge drinking (10 beers and multiple shots on Friday), which made him vomit multiple times having burning sensation in his throat, fasting for two days, not able to hold down any food or liquid items. Patient presented similar symptoms approximately five years ago when he was diagnosed with DKA where he was diagnosed with NSTEMI in completed coronary angiography with no stents placed. Denies any other associated symptom. During ED visit patient was diagnosed with DKA/HHS, required insulin drip and heparin drip due to NSTEMI. Cardiology consulted for elevated troponin. EKG in ED showed sinus rhythm with diffuse ST elevation with CA depression. Past medical history: Diabetes type 1 diagnosed at year age [age], dyslipidemia, previous admission due to DKA five years ago with coronary angiography with no stents placed, left femur fracture with conservative treatment. Surgical history: Coronary angiography five years ago with no stents placed. Left elbow surgery Family history: Father had prostate cancer Social history: Lives in [place] with family (next of kin is father). Ex marijuana abuse. Occasionally drinks alcohol (2-3 drinks during weekends). Denies current tobacco and other drug abuse. Allergies: Environmental Home medication: Insulin (Lantus 30 units and Humalog with sliding scale). Patient seen and examined at bedside. Currently has no new complaints. Awaiting results of echocardiogram. Objective vital signs Vital Sign Date Time Temp Pulse Resp B/P (MAP) Pulse Ox O2 Delivery O2 Flow Rate FiO2 01/14/25 08:00 Room Air* 0 21 01/14/25 06:04 98 18 145/96 01/14/25 01:00 98.2 95 98.2 Total Intake and Output 01/13/25 01/13/25 01/14/25 15:00 23:00 07:00 Intake Total 0 ml Output Total 300 ml Balance -300 ml medications Current Medications Medications Dose Ordered Sig/Jorge Alberto Route Start Time Stop Time Status Last Admin Dose Admin Ondansetron HCl 4 mg Q4HP PRN IV 01/13/25 04:00 01/14/25 06:04 4 MG Insulin Glargine 15 units QAM SC 01/13/25 04:00 01/13/25 04:52 15 UNITS Diagnostic Test (Pha) 1 strip IQ4HR 01/13/25 04:00 01/14/25 04:25 1 STRIP Insulin Human Regular IQ4HR SC 01/13/25 04:00 01/14/25 08:24 2 UNITS Dextrose 50 ml UD PRN IV 01/13/25 04:00 Hydromorphone HCl 0.25 mg Q4HPRN PRN IV 01/13/25 04:00 01/14/25 06:04 0.25 MG Aspirin 81 mg DAILY PO 01/14/25 10:00 Atorvastatin Calcium 40 mg HS PO 01/13/25 22:00 Examination Patient lying in bed, in no acute distress General: Lucid, afebrile, mucosae are dry Cardiovascular: Normal S1 and S2. No murmurs, gallops or rubs Respiratory: Normal ventilation mechanics. Clear lung sounds on auscultation Abdomen: Soft, nontender, no organomegaly, normal bowel sounds MSK/skin: Mobilizes 4 limbs. Skin is dry and warm Neurological: Oriented in 3 spheres. No motor no sensitive deficits. Pupils are isocoric and reactive laboratory and microbiology Laboratory Tests 01/14/25 05:42 01/13/25 04:37 Test 01/14/25 05:42 Range/Units Serum Glucose 150 H 74-106 mg/dL Problem List/Assessment/Plan Problem List/Assessment/Plan Assessment NSTEMI type 2 Probable pericarditis Ruled out acute coronary syndrome Newly diagnosed hypothyroidism ALEA hemodynamically mediated (VMN) DKA/HHS - resolved Diabetes insulin requiring - uncontrolled (hemoglobin A1c 9.1%) Newly diagnosed hypothyroidism Dyslipidemia Normocytic anemia Prostatomegaly Vitamin D deficiency Plan/Recommendation EKG shows diffuse ST elevation with positive concavity and CA depression. Troponin level are high up trending ([id number]). Patient does not have chest pain but has nausea, vomiting and dyspnea which would could be anginal equivalent. Indicated left heart catheterization. Patient require heparin drip, aspirin and atorvastatin during ED visit until coronary angiography was completed Completed coronary angiography which showed nonobstructive coronary lesions, normal end-diastolic left ventricular pressures. Ordered echocardiogram to evaluate pericardial disease. Patient will benefit from medical therapy of cardiovascular risk factors. Initiated thyroid replacement therapy (100 ug PO daily). Ordered free T4, total T3 and anti-bodies. Replenished vitamin D Replenished levothyroxine DKA/HHS management per primary team Goals of care discussed with patient for over 18 minutes: Full code status Discussed plan with Dr. Pelayo, patient and nurses: Due to up trending troponin level and questionable anginal equivalent symptoms (nausea, vomiting and dyspnea), patient was placed on heparin drip and indicated coronary angiography (patient agreed with therapy), showing non obstructive coronaries (ruled out ACS). Awaiting results of echocardiogram to evaluate pericardial disease. Diagnosed with hypothyroidism, started on levothyroxine. Patient has poor prognosis due to poorly controlled diabetes. Plan discussed with: Patient, Other (Nurses) My Orders My Orders Orders - FABIAN SOLOMON RESIDENT Procedure Category Date Status Time Obtain Consent For: ORDERS 01/13/25 Transmitted 11:01 D/C Tlc KELLIE 01/13/25 In Process 11:01 Provide Education [facility] 01/13/25 In Process Materials 11:01 Cl Left Heart Cath CL 01/13/25 Taken 11:01 Comprehensive LAB 01/15/25 Verified Metabolic Panel 04:00 Npo (Nothing By DIET 01/14/25 Transmitted Mouth) Diet Breakfast Blood Culture WENDIE 01/13/25 In Process 11:09 Urine Bacterial WENDIE 01/13/25 In Process Culture 11:09 Respiratory Culture WENDIE 01/13/25 Logged W/ Gs 11:09 Psa Total+% Free LAB 01/13/25 In Process 11:15 Free T4 (Free LAB 01/14/25 Logged Thyroxine) 09:16 T3 Total LAB 01/14/25 Logged 09:16 Levothyroxine Tablet PHA 01/15/25 Logged (Synthroid Tablet) 06:00 Levothyroxine Tablet PHA 01/14/25 Logged (Synthroid Tablet) 09:30 Complete Blood Count LAB 01/14/25 Logged 09:16 Comprehensive LAB 01/14/25 Logged Metabolic Panel 09:16 Troponin-I Hs LAB 01/14/25 Logged 09:16 Creatine Kinase LAB 01/14/25 Logged 09:16 Sodium Chloride 0.9% PHA 01/14/25 Logged 09:30 Sodium Chloride 0.9% PHA 01/14/25 Logged 09:30 Ergocalciferol PHA 01/14/25 Logged (Vitamin D 50,000 09:30 Visit Coding Cardiology RES Date of Service: Jan 14, 2025 Billing Provider: JADE PELAYO Sr., MD Cardiology Common Codes: [id number] HOSP CARE(High Cardiology Secondary Visit Cod: [email or web address] CARE PLAN 30 MINUTES FABIAN SOLOMON RESIDENT Jan 14, 2025 09:38
[2025-01-14 09:47] LABS: Hematocrit 39.4 % (41.0-53.0); Hemoglobin 13.5 g/dL (13.5-17.5); Mean Corpuscular Hemoglobin 32.3 pg (28.0-32.0); Mean Corpuscular Volume 94.0 fL (80.0-100.0); Nucleated Red Blood Cells % 0.1 %
[2025-01-14] MEDS: ERGOCALCIFEROL 50,000 UNIT(1.25MG) CAP PO SCH (10:17)
[2025-01-14] MEDS: LEVOTHYROXINE SODIUM 100 MCG TAB PO ONE (10:17)
[2025-01-14 10:54] LABS: Alanine Aminotransferase 28 U/L (7-40); Albumin 3.7 g/dL (3.2-4.8); Alkaline Phosphatase 70 U/L (46-116); Anion Gap 7 (5-15); BUN/Creatinine Ratio 11.3 (10.0-20.0); Blood Urea Nitrogen 14 mg/dL (9-23); Carbon Dioxide 31 mmol/L (20-31); Chloride 99 mmol/L (98-107); Potassium 4.0 mmol/L (3.5-5.1); Sodium 137 mmol/L (136-145); Total Protein 6.0 g/dL (5.7-8.2)
[2025-01-14 10:55] LABS: Bilirubin, Total 0.9 mg/dL (0.2-1.0)
[2025-01-14 11:01] LABS: Calcium 8.3 mg/dL (8.7-10.4); Creatine Kinase IFCC 386 U/L (46-171); Glucose 125 mg/dL (74-106)
[2025-01-14 11:17] LABS: Free T4 (Free Thyroxine) 0.89 ng/dL (0.89-1.76)
[2025-01-14] MEDS: SODIUM CHLORIDE 0.9% 1,000 ML IV SCH (15:21)
[2025-01-14] MEDS: SODIUM CHLORIDE 0.9% 1,000 ML IV ONE (15:21)
[2025-01-14] MEDS: LIDOCAINE VISCOUS 2% 15ML UD MT PRN (16:29)
--- NOTE | 2025-01-14 16:49 | DVHPN2 ---
Subjective This patient was admitted by [facility] hospitalist/resident. I am assuming the care of the patient from today onwards. 39-year-old male with a known history of type 1 diabetes mellitus since the age of [age], presented to the hospital at [facility] with the nausea and vomiting found to have NSTEMI as well as diabetes ketoacidosis. Patient was air lifted by the [employer] air. Patient already has a coronary angiogram which shows normal coronary arteries. 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 Medications Current Medications Medications Dose Ordered Sig/Jorge Alberto Route Start Time Stop Time Status Last Admin Dose Admin Ondansetron HCl 4 mg Q4HP PRN IV 01/13/25 04:00 01/14/25 10:28 4 MG Insulin Glargine 15 units QAM SC 01/13/25 04:00 01/13/25 04:52 15 UNITS Diagnostic Test (Pha) 1 strip IQ4HR 01/13/25 04:00 01/14/25 16:07 1 STRIP Insulin Human Regular IQ4HR SC 01/13/25 04:00 01/14/25 16:15 2 UNITS Dextrose 50 ml UD PRN IV 01/13/25 04:00 Hydromorphone HCl 0.25 mg Q4HPRN PRN IV 01/13/25 04:00 01/14/25 15:19 0.25 MG Levothyroxine Sodium 100 mcg QAM@0600 PO 01/15/25 06:00 Sodium Chloride 1,000 ml @ 75 mls/hr [id number] IV 01/14/25 09:30 01/14/25 15:21 75 MLS/HR Ergocalciferol 50,000 unit Q7D PO 01/14/25 09:30 01/14/25 10:17 50,000 UNIT Lidocaine HCl 10 ml Q4HP PRN MT 01/14/25 16:15 01/14/25 16:29 10 ML Laboratory Results Laboratory Tests 01/14/25 05:42 01/14/25 10:20 Chemistry Test 01/13/25 18:12 01/14/25 01:08 01/14/25 05:42 01/14/25 10:20 Calcium Level 8.1 mg/dL (8.7-10.4) L 8.4 mg/dL (8.7-10.4) L 8.7 mg/dL (8.7-10.4) 8.3 mg/dL (8.7-10.4) L Albumin 3.7 g/dL (3.2-4.8) Total Protein 6.0 g/dL (5.7-8.2) LFT Test 01/14/25 10:20 Alanine Aminotransferase (ALT) 28 U/L (7-40) Alkaline Phosphatase 70 U/L (46-116) Aspartate Amino Transferase (AST) 62 U/L (13-40) H Total Bilirubin 0.9 mg/dL (0.2-1.0) Urinalysis Test 01/12/25 22:15 01/14/25 04:37 Urine Color Colorless (Yellow) Urine Clarity Clear (Clear) Urine pH 5.0 (5.0-9.0) Urine Specific [place] 1.017 (1.001-1.035) Urine Protein Negative (Negative) Urine Ketones 1+ (Negative) H Urine Blood 1+ /uL (Negative) H Urine Nitrite Negative (Negative) Urine Bilirubin Negative (Negative) Urine Urobilinogen Normal mg/dL (Negative) Urine Leukocyte Esterase Negative /uL (Negative) Urine RBC <1 /hpf (0 - 3) Urine Microscopic WBC 1 /HPF (0-3) Urine Squamous Epithelial Cells None seen /hpf (<5) Urine Bacteria Few /hpf (None Seen) H Urine Mucus Few (None Seen) Urine Glucose 4+ mg/dL (Normal) H Urine Osmolality 757 mOsm/kg Urine Creatinine 112.37 mg/dL (30.0-125.0) Urine Sodium 198 mmol/L (40-220) Urine Total Protein 34.0 mg/dL (1-14) H Microbiology Microbiology Date/Time Source Procedure Growth Status 01/13/25 13:07 Blood Blood Culture - Preliminary NO GROWTH AFTER 24 HOURS OF INCUBATION. Resulted Assessment/Plan Assessment/Plan 39-year-old male with a known history of type 1 diabetes mellitus insulin- dependent who presented to the hospital at [facility] for nausea and vomiting found to have NSTEMI as well as DKA eventually patient was transferred for higher level of care to [facility]. 1. Diabetic ketoacidosis, resolved currently off of insulin drip 2. Elevated troponin suspect NSTEMI type 1, status post coronary angiogram showing no significant coronary artery disease 3. Acute kidney injury suspected secondary to vasomotor nephropathy 4. Burning epigastric pain Protonix, GI consultation -continue medical management including aspirin statin, follow up Cardiology recommendation, resume home dose of insulin Lantus. Plan discussed with: Patient My Orders Orders - KRISTI LINO MD Procedure Category Date Status Time Mrsa Screen WENDIE 01/14/25 In Process 10:27 *Consult Dr. Epperson CONS 01/14/25 Transmitted Ludwig 14:44 Lidocaine 2% Viscous PHA 01/14/25 In Process (Xylocaine 2% Visco 16:15 Date of Service: Jan 14, 2025 Billing Provider: KRISTI LINO MD Common Visit Codes: NOT BILLABLE KRISTI LINO MD Jan 14, 2025 16:49
--- NOTE | 2025-01-14 17:18 | DVHINCON2 ---
Date of service: Jan 14, 2025 Reason for Consultation Nausea and vomiting History of Present Illness The patient is a 39-year-old male with a history of type 1 diabetes transferred from [facility] for DKA. Patient with a history of NSTEMI. Patient states that he has had episodes similar to this in the past. Patient has had significant nausea and vomiting states that he had emesis of more than a 1000 times. He complains of throat pain. Denies any epigastric abdominal pain. Patient states that he had cardiac workup given elevated troponin and concern for cardiac disease. Patient denies history of endoscopy. He denies any hematemesis, he denies melena or hematochezia. Patient states his throat pain is due to significant emesis. Patient stated he is tolerating a diet better now and he has no further episodes of emesis. Past Medical History As above Hyperlipidemia Past Surgical History Denies Family History: FH: prostate cancer Allergies: Coded Allergies: No Known Drug Allergy (Verified Allergy, Unknown, 01/12/25) Home Meds Reported Medications Insulin Lispro (Human) (Humalog) 100 Unit/Ml Inj, 100 UNIT SC, INJ 01/14/25 Insulin Glargine (Lantus) 100 Unit/Ml Inj, 25 UNIT SC, INJ 01/14/25 Current Medications Current Medications Medications (Trade) Dose Ordered Sig/Jorge Alberto Route PRN Reason Start Time Stop Time Status Last Admin Aspirin 81 mg DAILY PO 01/14/25 10:00 01/14/25 09:24 DC Atorvastatin Calcium (Lipitor) 40 mg HS PO 01/13/25 22:00 01/14/25 09:25 DC Levothyroxine Sodium (Synthroid Tablet) 100 mcg QAM@0600 PO 01/15/25 06:00 Sodium Chloride 1,000 ml @ 75 mls/hr [id number] IV 01/14/25 09:30 01/14/25 15:21 Ergocalciferol (Vitamin D 50,000 Unit) 50,000 unit Q7D PO 01/14/25 09:30 01/14/25 10:17 Lidocaine HCl (Xylocaine 2% Viscous) 10 ml Q4HP PRN MT FOR SORE THROAT 01/14/25 16:15 01/14/25 16:29 Review of Systems Twelve point review of systems negative other than HPI Vital Signs Vital Signs Date Time Temp Pulse Resp B/P (MAP) Pulse Ox O2 Delivery O2 Flow Rate FiO2 01/14/25 16:46 98.4 92 18 142/87 (105) 92 98.4 01/14/25 08:00 Room Air* 0 21 Physical Exam General: Well-developed well-nourished HEENT: NC/AT EOMI PERRLA O/P clear, no JVD or cervical lymphadenopathy, no scleral icterus Heart: Regular rate and rhythm, no murmurs rubs or gallops Lungs: Clear to auscultation bilaterally, no wheezes rales or rhonchi Abdomen: Soft, nontender, nondistended, no organomegaly, normoactive bowel sounds Extremity: No clubbing cyanosis or edema, no rashes or bruises Neuro: Cranial nerves 2-12 grossly intact, moves all four extremities, no asterixis Labs/Diagnostic Data Labs Test 01/14/25 16:02 01/14/25 10:20 01/14/25 05:42 01/14/25 04:37 Range/Units POC Glucose 153 H 70-106 mg/dl Sodium Level 137 136-145 mmol/L Potassium Level 4.0 3.5-5.1 mmol/L Chloride Level 99 98-107 mmol/L Carbon Dioxide Level 31 20-31 mmol/L Anion Gap 7 5-15 Blood Urea Nitrogen 14 9-23 mg/dL Creatinine 1.24 0.700-1.30 mg/dL Glomerular Filtration Rate Calc 76 >90 mL/min BUN/Creatinine Ratio 11.3 10.0-20.0 Serum Glucose 125 H 74-106 mg/dL Calcium Level 8.3 L 8.7-10.4 mg/dL Total Bilirubin 0.9 0.2-1.0 mg/dL Aspartate Amino Transferase (AST) 62 H 13-40 U/L Alanine Aminotransferase (ALT) 28 7-40 U/L Alkaline Phosphatase 70 46-116 U/L Creatine Kinase 386 H 46-171 U/L Total Protein 6.0 5.7-8.2 g/dL Albumin 3.7 3.2-4.8 g/dL White Blood Count 4.7 # 4.4-10.8 10^3/uL Red Blood Count 4.19 L 4.5-5.90 10^6/uL Hemoglobin 13.5 13.5-17.5 g/dL Hematocrit 39.4 L 41.0-53.0 % Mean Corpuscular Volume 94.0 80.0-100.0 fL Mean Corpuscular Hemoglobin 32.3 H 28.0-32.0 pg Mean Corpuscular Hemoglobin Concent 34.3 32.0-36.0 g/dL Red Cell Distribution Width 13.3 11.8-14.3 % Platelet Count 216 140-450 10^3/uL Mean Platelet Volume 7.3 6.9-10.8 fL Neutrophils (%) (Auto) 82.0 H 37.0-80.0 % Lymphocytes (%) (Auto) 12.2 10.0-50.0 % Monocytes (%) (Auto) 5.5 0.0-12.0 % Eosinophils (%) (Auto) 0.1 0.0-7.0 % Basophils (%) (Auto) 0.2 0.0-2.0 % Neutrophils # (Auto) 3.9 1.6-8.6 10 ^3/uL Lymphocytes # (Auto) 0.6 0.4-5.4 10 ^3/uL Monocytes # (Auto) 0.3 0-1.3 10 ^3/uL Eosinophils # (Auto) 0 0-0.8 10 ^3/uL Basophils # (Auto) 0 0-0.2 10 ^3/uL Nucleated Red Blood Cells 0.1 % Troponin I High Sensitivity 5926 *H </=54 ng/L Free Thyroxine (T4) Calculated 0.89 0.89-1.76 ng/dL Total Triiodothyronine (TT3) 0.91 0.60-1.81 ng/mL Urine Osmolality 757 mOsm/kg Urine Creatinine 112.37 30.0-125.0 mg/dL Urine Sodium 198 40-220 mmol/L Urine Total Protein 34.0 H 1-14 mg/dL Urine Opiates Screen Neg NEGATIVE Urine Fentanyl Screen Neg NEGATIVE Urine Barbiturates Screen Neg NEGATIVE Urine Phencyclidine Screen Neg NEGATIVE Urine Amphetamines Screen Neg NEGATIVE Urine Benzodiazepines Screen Pos NEGATIVE Urine Cocaine Screen Neg NEGATIVE Urine Cannabinoids Screen Neg NEGATIVE Test 01/13/25 23:14 01/13/25 11:36 01/13/25 07:25 01/13/25 04:37 Range/Units Influenza Type A Antigen Negative Negative Influenza Type B Antigen Negative Negative SARS-CoV-2 Antigen (Rapid) Negative NEGATIVE Hemoglobin A1c 9.1 H <5.7 % A1C Lactic Acid Level 1.2 0.4-2.0 mmol/L Phosphorus Level 2.7 2.4-5.1 mg/dL Magnesium Level 2.0 1.6-2.6 mg/dL Triglycerides Level 76 < 150 mg/dL Cholesterol Level 133 < 200 mg/dL LDL Cholesterol 51 < 100 mg/dL HDL Cholesterol 66 H 40-59 mg/dL Lipase 20 12-53 U/L Vitamin B12 Level 575 211-911 pg/mL Vitamin D 25-Hydroxy 16.2 L 30.0-100 ng/mL Thyroid Stimulating Hormone (TSH) 28.55 H 0.55-4.78 uIU/mL Prothrombin Time 11.5 9.3-11.8 sec Prothrombin Time INR 1.09 0.9-1.15 Activated Partial Thromboplast Time 59.3 H 24.5-34.5 SEC Serum Osmolality 300 H 278-298 mOsm/kg Test 01/12/25 22:25 01/12/25 22:15 01/12/25 22:12 Range/Units Blood Gas Specimen Type Arterial Blood Gas Sample Site Left radial Blood Gas Patient Temperature 37.0 Arterial Blood Date Drawn [id number] Arterial Blood pH 7.533 H 7.350-7.450 Arterial Blood Partial Pressure CO2 31.4 L 35.0-48.0 mmHg Arterial Blood Partial Pressure O2 73.5 L 83.0-108.0 mmHg Arterial Blood HCO3 25.8 21.0-28.0 mmol/L Arterial Blood Oxygen Saturation 95.9 94.0-98.0 % Arterial Blood Base Excess 3.8 H -2.0-3.0 mmol/L Arterial Blood Oxyhemoglobin 94.6 94.0-98.0 % Arterial Blood Carboxyhemoglobin 0.8 0.5-1.5 % Arterial Blood Methemoglobin 0.6 0.0-1.5 % Thomas Test Modified Blood Gas Total Hemoglobin 13.60 13.5-17.5 g/dL Blood Gas Modality Room air FiO2 % 21.0 Urine Color Colorless Yellow Urine Clarity Clear Clear Urine pH 5.0 5.0-9.0 Urine Specific [place] 1.017 1.001-1.035 Urine Protein Negative Negative Urine Ketones 1+ H Negative Urine Blood 1+ H Negative /uL Urine Nitrite Negative Negative Urine Bilirubin Negative Negative Urine Urobilinogen Normal Negative mg/dL Urine Leukocyte Esterase Negative Negative /uL Urine RBC <1 0 - 3 /hpf Urine Microscopic WBC 1 0-3 /HPF Urine Squamous Epithelial Cells None seen <5 /hpf Urine Bacteria Few H None Seen /hpf Urine Mucus Few None Seen Urine Glucose 4+ H Normal mg/dL Beta-Hydroxybutyric Acid 2.395 H < 0.4 mmol/L Microbiology Date/Time Source Procedure Growth Status 01/13/25 13:07 Blood Blood Culture - Preliminary NO GROWTH AFTER 24 HOURS OF INCUBATION. Resulted Assessment 1. Type 1 diabetes 2. Intractable nausea and vomiting 3. DKA 4. Throat pain Problems(with codes): (1) DKA (diabetic ketoacidosis) (2) NSTEMI (non-ST elevated myocardial infarction) Plan/Recommendation 1. Antiemetics 2. Diabetes control 3. Hold off on EGD at this time 4. Consider possibility that patient has candidal esophagitis if his symptoms do not improve and he might need endoscopy 5. We will follow Plan discussed with: Patient ROCAEL GONZALEZ MD Jan 14, 2025 17:18
[2025-01-15] VITALS (8 sets, daily range): BP systolic 141–152; BP diastolic 88–99; PULSE 88–103; RESP 18–20; TEMP 98.4–99.9; O2SAT 92–97
[2025-01-15] MEDS: LEVOTHYROXINE SODIUM 100 MCG TAB PO SCH (05:09)
[2025-01-15 06:11] LABS: Alanine Aminotransferase 22 U/L (7-40); Albumin 3.7 g/dL (3.2-4.8); Alkaline Phosphatase 71 U/L (46-116); Anion Gap 11 (5-15); BUN/Creatinine Ratio 12.5 (10.0-20.0); Bilirubin, Total 1.2 mg/dL (0.2-1.0); Blood Urea Nitrogen 13 mg/dL (9-23); Carbon Dioxide 25 mmol/L (20-31); Potassium 4.1 mmol/L (3.5-5.1); Total Protein 6.1 g/dL (5.7-8.2)
[2025-01-15 06:15] LABS: Calcium 8.5 mg/dL (8.7-10.4); Chloride 98 mmol/L (98-107); Glucose 180 mg/dL (74-106); Sodium 134 mmol/L (136-145)
[2025-01-15] MEDS: MAALOX PLUS or MAALOX 30 ML GT PRN ×2 (10:41→16:57)
[2025-01-15] MEDS: PANTOPRAZOLE 40 MG/10 ML VIAL INJ IV SCH (10:41)
--- NOTE | 2025-01-15 12:59 | DVHINCON2 ---
Date of service: Jan 15, 2025 Referring Physician Evie Herrera MD Reason for Consultation DKA History of Present Illness Patient is a 39-year-old male with past medical history significant for T1DM, presented to ED after being transferred from [facility] for management of diabetic ketoacidosis (DKA) and non-ST elevation myocardial infarction (NSTEMI). Patient reports that symptoms began earlier today, including nausea, vomiting, and markedly elevated blood glucose levels. He was concerned about the possibility of DKA. He has a history of type 1 diabetes mellitus at age 7 and experienced one prior episode of DKA approximately 3 years ago. He reports that the current episode feels more severe than his previous one. At present, the patient complains of throat pain. He denies fever, chills, chest pain, shortness of breath, headache, dizziness, blurred vision, dysuria, hematuria, or hematemesis. Past Medical History Endocrine: Diabetes Past Surgical History Past Surgical History elbow surgery Family History: FH: prostate cancer Social History Family History: None Smoke: Quit ALCOHOL: heavy Drugs: None Allergies: Coded Allergies: No Known Drug Allergy (Verified Allergy, Unknown, 01/12/25) Home Meds Reported Medications Insulin Lispro (Human) (Humalog) 100 Unit/Ml Inj, 100 UNIT SC, INJ 01/14/25 Insulin Glargine (Lantus) 100 Unit/Ml Inj, 25 UNIT SC, INJ 01/14/25 Current Medications Current Medications Medications (Trade) Dose Ordered Sig/Jorge Alberto Route PRN Reason Start Time Stop Time Status Last Admin Levothyroxine Sodium (Synthroid Tablet) 100 mcg QAM@0600 PO 01/15/25 06:00 01/15/25 05:09 Lidocaine HCl (Xylocaine 2% Viscous) 10 ml Q4HP PRN MT FOR SORE THROAT 01/14/25 16:15 01/14/25 16:29 Al Hydrox/Mg Hydrox/Simethicone (Maalox Plus) 15 ml Q8HP PRN GT FOR STOMACH DISTRESS 01/15/25 10:15 01/15/25 10:41 Pantoprazole Sodium (Protonix) 40 mg DAILY IV 01/16/25 10:00 01/15/25 10:04 DC Pantoprazole Sodium (Protonix) 40 mg DAILY IV 01/15/25 10:15 10/25/25 10:41 Review of Systems General: No Fever, chills, night sweats or weight loss HEENT: No Sinus pain, headache, vision changes , c/o sore throat Respiratory: No Cough, dyspnea, sputum production Cardiovascular: No Chest pain, palpitations or leg edema Gastrointestinal: No Nausea, vomiting, diarrhea, abdominal pain Genitourinary: No Dysuria, urinary frequency, hematuria, pelvic pain Skin: No Rashes, ulcers, abscesses, redness or swelling Musculoskeletal: No Joint pain, muscle pain or swelling Neurologic: No Altered mental status, headaches or focal neurological deficits Psychiatric: No Anxiety, depression or confusion Vital Signs Vital Signs Date Time Temp Pulse Resp B/P (MAP) Pulse Ox O2 Delivery O2 Flow Rate FiO2 01/15/25 12:38 98.6 94 20 142/88 (106) 97 98.6 01/15/25 08:00 Room Air* 0 21 Physical Exam General: Patient appears alert, comfortable and well-appearing. HEENT: Normocephalic, atraumatic, Sclera anicteric, conjunctiva clear, No nasal discharge or congestion. Mucous membranes moist, no tonsillar erythema or exudates. Neck: No cervical lymphadenopathy or masses. No neck stiffness. Lungs: Breath sounds clear bilaterally, no wheezes, rales, or rhonchi. No use of accessory muscles or respiratory distress. Cardiovascular: Regular rate and rhythm, no murmurs, rubs, or gallops. Abdomen: Soft, non-tender, non-distended. Bowel sounds present in all quadrants. No hepatosplenomegaly or masses. Skin: No rash, petechiae, or ecchymosis. Extremities: No edema, cyanosis, or clubbing. No tenderness to palpation, eryth matthew, or swelling in joints. No signs of deep vein thrombosis (DVT). Neurologic: Patient is alert and oriented to person, place, and time. Cranial nerves II-XII intact. Motor strength 5/5 bilaterally in all extremities. Labs/Diagnostic Data Labs Test 01/15/25 11:36 01/15/25 05:22 01/14/25 10:20 01/14/25 05:42 Range/Units POC Glucose 174 H 70-106 mg/dl Sodium Level 134 L 136-145 mmol/L Potassium Level 4.1 3.5-5.1 mmol/L Chloride Level 98 98-107 mmol/L Carbon Dioxide Level 25 20-31 mmol/L Anion Gap 11 5-15 Blood Urea Nitrogen 13 9-23 mg/dL Creatinine 1.04 0.700-1.30 mg/dL Glomerular Filtration Rate Calc 94 >90 mL/min BUN/Creatinine Ratio 12.5 10.0-20.0 Serum Glucose 180 H 74-106 mg/dL Calcium Level 8.5 L 8.7-10.4 mg/dL Total Bilirubin 1.2 H 0.2-1.0 mg/dL Aspartate Amino Transferase (AST) 33 13-40 U/L Alanine Aminotransferase (ALT) 22 7-40 U/L Alkaline Phosphatase 71 46-116 U/L Total Protein 6.1 5.7-8.2 g/dL Albumin 3.7 3.2-4.8 g/dL Creatine Kinase 386 H 46-171 U/L Thyroid Peroxidase Antibodies 374 H 0-34 IU/mL Thyrotropin Receptor Antibody <1.10 0.00-1.75 IU/L White Blood Count 4.7 # 4.4-10.8 10^3/uL Red Blood Count 4.19 L 4.5-5.90 10^6/uL Hemoglobin 13.5 13.5-17.5 g/dL Hematocrit 39.4 L 41.0-53.0 % Mean Corpuscular Volume 94.0 80.0-100.0 fL Mean Corpuscular Hemoglobin 32.3 H 28.0-32.0 pg Mean Corpuscular Hemoglobin Concent 34.3 32.0-36.0 g/dL Red Cell Distribution Width 13.3 11.8-14.3 % Platelet Count 216 140-450 10^3/uL Mean Platelet Volume 7.3 6.9-10.8 fL Neutrophils (%) (Auto) 82.0 H 37.0-80.0 % Lymphocytes (%) (Auto) 12.2 10.0-50.0 % Monocytes (%) (Auto) 5.5 0.0-12.0 % Eosinophils (%) (Auto) 0.1 0.0-7.0 % Basophils (%) (Auto) 0.2 0.0-2.0 % Neutrophils # (Auto) 3.9 1.6-8.6 10 ^3/uL Lymphocytes # (Auto) 0.6 0.4-5.4 10 ^3/uL Monocytes # (Auto) 0.3 0-1.3 10 ^3/uL Eosinophils # (Auto) 0 0-0.8 10 ^3/uL Basophils # (Auto) 0 0-0.2 10 ^3/uL Nucleated Red Blood Cells 0.1 % Troponin I High Sensitivity 5926 *H </=54 ng/L Free Thyroxine (T4) Calculated 0.89 0.89-1.76 ng/dL Total Triiodothyronine (TT3) 0.91 0.60-1.81 ng/mL Test 01/14/25 04:37 01/13/25 23:14 01/13/25 11:36 01/13/25 07:25 Range/Units Urine Osmolality 757 mOsm/kg Urine Creatinine 112.37 30.0-125.0 mg/dL Urine Sodium 198 40-220 mmol/L Urine Total Protein 34.0 H 1-14 mg/dL Urine Opiates Screen Neg NEGATIVE Urine Fentanyl Screen Neg NEGATIVE Urine Barbiturates Screen Neg NEGATIVE Urine Phencyclidine Screen Neg NEGATIVE Urine Amphetamines Screen Neg NEGATIVE Urine Benzodiazepines Screen Pos NEGATIVE Urine Cocaine Screen Neg NEGATIVE Urine Cannabinoids Screen Neg NEGATIVE Influenza Type A Antigen Negative Negative Influenza Type B Antigen Negative Negative SARS-CoV-2 Antigen (Rapid) Negative NEGATIVE Hemoglobin A1c 9.1 H <5.7 % A1C Lactic Acid Level 1.2 0.4-2.0 mmol/L Phosphorus Level 2.7 2.4-5.1 mg/dL Magnesium Level 2.0 1.6-2.6 mg/dL Triglycerides Level 76 < 150 mg/dL Cholesterol Level 133 < 200 mg/dL LDL Cholesterol 51 < 100 mg/dL HDL Cholesterol 66 H 40-59 mg/dL Lipase 20 12-53 U/L Vitamin B12 Level 575 211-911 pg/mL Vitamin D 25-Hydroxy 16.2 L 30.0-100 ng/mL Thyroid Stimulating Hormone (TSH) 28.55 H 0.55-4.78 uIU/mL Prothrombin Time 11.5 9.3-11.8 sec Prothrombin Time INR 1.09 0.9-1.15 Activated Partial Thromboplast Time 59.3 H 24.5-34.5 SEC Test 01/13/25 04:37 01/12/25 22:25 01/12/25 22:15 01/12/25 22:12 Range/Units Serum Osmolality 300 H 278-298 mOsm/kg Blood Gas Specimen Type Arterial Blood Gas Sample Site Left radial Blood Gas Patient Temperature 37.0 Arterial Blood Date Drawn [id number] Arterial Blood pH 7.533 H 7.350-7.450 Arterial Blood Partial Pressure CO2 31.4 L 35.0-48.0 mmHg Arterial Blood Partial Pressure O2 73.5 L 83.0-108.0 mmHg Arterial Blood HCO3 25.8 21.0-28.0 mmol/L Arterial Blood Oxygen Saturation 95.9 94.0-98.0 % Arterial Blood Base Excess 3.8 H -2.0-3.0 mmol/L Arterial Blood Oxyhemoglobin 94.6 94.0-98.0 % Arterial Blood Carboxyhemoglobin 0.8 0.5-1.5 % Arterial Blood Methemoglobin 0.6 0.0-1.5 % Thomas Test Modified Blood Gas Total Hemoglobin 13.60 13.5-17.5 g/dL Blood Gas Modality Room air FiO2 % 21.0 Urine Color Colorless Yellow Urine Clarity Clear Clear Urine pH 5.0 5.0-9.0 Urine Specific [place] 1.017 1.001-1.035 Urine Protein Negative Negative Urine Ketones 1+ H Negative Urine Blood 1+ H Negative /uL Urine Nitrite Negative Negative Urine Bilirubin Negative Negative Urine Urobilinogen Normal Negative mg/dL Urine Leukocyte Esterase Negative Negative /uL Urine RBC <1 0 - 3 /hpf Urine Microscopic WBC 1 0-3 /HPF Urine Squamous Epithelial Cells None seen <5 /hpf Urine Bacteria Few H None Seen /hpf Urine Mucus Few None Seen Urine Glucose 4+ H Normal mg/dL Beta-Hydroxybutyric Acid 2.395 H < 0.4 mmol/L Microbiology Date/Time Source Procedure Growth Status 01/13/25 13:07 Blood Blood Culture - Preliminary NO GROWTH AFTER 24 HOURS OF INCUBATION. Resulted Assessment A 39 yo Male with Sorethroat Nausea/ Vomiting DKA NSTEMI ALEA DM type 1 recommendations Blood cultures urine cultures GI consult Sorethroat is likely secondary to vomiting but rule out viral illness.COVID/ flu is negatibe Kidney US pending Cardiology/ GI is consulted DKA management by primary team Prognosis gaurded thank you for consult Time spent 80 minutes during encounter Plan discussed with: Patient, Other CHERY SCHUSTER MD Jan 15, 2025 12:59
--- NOTE | 2025-01-15 16:36 | DVHPNRES ---
Progress Note Date Seen: Jan 15, 2025 Resident Creating Document: ESTELA SAAVEDRA RESIDENT Medical Necessity Reason Pt with a Central, PICC or Fol: No Subjective Review of Systems Conner Fowler is a 39-year-old male patient who presents to the ED transfered from [facility] with diagnosis of DKA symptomatic with nausea and nonbloody vomiting with food content emesis which started approximately two days before his admission associated with dyspnea and functional class for that initiated day of his admission, prompting his visit to the ED. Patient reports he believes symptoms were triggered by binge drinking (10 beers and multiple shots on Friday), which made him vomit multiple times having burning sensation in his throat, fasting for two days, not able to hold down any food or liquid items. Patient presented similar symptoms approximately five years ago when he was diagnosed with DKA where he was diagnosed with NSTEMI in completed coronary angiography with no stents placed. Denies any other associated symptom. During ED visit patient was diagnosed with DKA/HHS, required insulin drip and heparin drip due to NSTEMI. Cardiology consulted for elevated troponin. EKG in ED showed sinus rhythm with diffuse ST elevation with NM depression. Past medical history: Diabetes type 1 diagnosed at year age [age], dyslipidemia, previous admission due to DKA five years ago with coronary angiography with no stents placed, left femur fracture with conservative treatment. Surgical history: Coronary angiography five years ago with no stents placed. Left elbow surgery Family history: Father had prostate cancer Social history: Lives in [place] with family (next of kin is father). Ex marijuana abuse. Occasionally drinks alcohol (2-3 drinks during weekends). Denies current tobacco and other drug abuse. Allergies: Environmental Home medication: Insulin (Lantus 30 units and Humalog with sliding scale). Patient seen and examined at bedside. Currently has no new complaints. ECHO: Images reviewed with Dr Nair, normal EF, no wall motion or important valve abnormalities Objective vital signs Vital Sign Date Time Temp Pulse Resp B/P (MAP) Pulse Ox O2 Delivery O2 Flow Rate FiO2 01/15/25 16:11 99 16 157/101 01/15/25 12:38 98.6 97 98.6 01/15/25 08:00 Room Air* 0 21 Total Intake and Output 01/14/25 01/14/25 01/15/25 15:00 23:00 07:00 Intake Total 600 ml 0 ml Balance 600 ml 0 ml medications Current Medications Medications Dose Ordered Sig/Jorge Alberto Route Start Time Stop Time Status Last Admin Dose Admin Ondansetron HCl 4 mg Q4HP PRN IV 01/13/25 04:00 01/15/25 16:01 4 MG Insulin Glargine 15 units QAM SC 01/13/25 04:00 01/13/25 04:52 15 UNITS Diagnostic Test (Pha) 1 strip IQ4HR 01/13/25 04:00 01/15/25 15:36 1 STRIP Insulin Human Regular IQ4HR SC 01/13/25 04:00 01/15/25 16:12 3 UNITS Dextrose 50 ml UD PRN IV 01/13/25 04:00 Hydromorphone HCl 0.25 mg Q4HPRN PRN IV 01/13/25 04:00 01/15/25 16:11 0.25 MG Levothyroxine Sodium 100 mcg QAM@0600 PO 01/15/25 06:00 01/15/25 05:09 100 MCG Sodium Chloride 1,000 ml @ 75 mls/hr [id number] IV 01/14/25 09:30 01/15/25 12:10 75 MLS/HR Ergocalciferol 50,000 unit Q7D PO 01/14/25 09:30 01/14/25 10:17 50,000 UNIT Lidocaine HCl 10 ml Q4HP PRN MT 01/14/25 16:15 01/14/25 16:29 10 ML Pantoprazole Sodium 40 mg DAILY IV 01/15/25 10:15 01/15/25 10:41 40 MG Nystatin 5 ml QID MT 01/15/25 18:00 Al Hydrox/Mg Hydrox/Simethicone 30 ml Q6HP PRN GT 01/15/25 17:00 Examination Patient lying in bed, in no acute distress General: Lucid, afebrile, mucosae are dry Cardiovascular: Normal S1 and S2. No murmurs, gallops or rubs Respiratory: Normal ventilation mechanics. Clear lung sounds on auscultation Abdomen: Soft, nontender, no organomegaly, normal bowel sounds MSK/skin: Mobilizes 4 limbs. Skin is dry and warm Neurological: Oriented in 3 spheres. No motor no sensitive deficits. Pupils are isocoric and reactive laboratory and microbiology Laboratory Tests 01/15/25 05:22 01/14/25 05:42 Test 01/15/25 05:22 Range/Units Serum Glucose 180 H 74-106 mg/dL Microbiology Date/Time Source Procedure Growth Status 01/14/25 23:14 Nose MRSA Screen - Final Complete 01/14/25 04:37 Voided Urine Urine Culture - Preliminary Resulted 01/13/25 13:07 Blood Blood Culture - Preliminary NO GROWTH AFTER 48 HOURS OF INCUBATION. Resulted Problem List/Assessment/Plan Problem List/Assessment/Plan NSTEMI type 2 Probable pericarditis Ruled out acute coronary syndrome Newly diagnosed hypothyroidism ALEA hemodynamically mediated (VMN) DKA/HHS - resolved Diabetes insulin requiring - uncontrolled (hemoglobin A1c 9.1%) Newly diagnosed hypothyroidism Dyslipidemia Normocytic anemia Prostatomegaly Vitamin D deficiency Plan/Recommendation EKG shows diffuse ST elevation with positive concavity and NM depression. Troponin level are high up trending ([id number]). Patient does not have chest pain but has nausea, vomiting and dyspnea which would could be anginal equivalent. Indicated left heart catheterization. Patient require heparin drip, aspirin and atorvastatin during ED visit until coronary angiography was completed Completed coronary angiography which showed nonobstructive coronary lesions, normal end-diastolic left ventricular pressures. ECHO: Images reviewed with Dr Nair, prelim report: normal EF, no wall motion or important valve abnormalities, we will sign off in the case of unremarkable official ECHO report Patient will benefit from medical therapy of cardiovascular risk factors. Initiated thyroid replacement therapy (100 ug PO daily) Replenished vitamin D Replenished levothyroxine DKA/HHS management per primary team Goals of care discussed with patient for over 18 minutes: Full code status Discussed plan with Dr. Hicks and Joanie. We will sign off for this case for now, but feel free to contact us if questions. Plan discussed with: Patient, Other (rn) My Orders My Orders Orders - ESTELA SAAVEDRA RESIDENT Procedure Category Date Status Time Pantoprazole PHA 01/15/25 In Process (Protonix) 10:15 Dietary Evaluation Review Recommendations by RD: Dietary education by RD Comments: 1) Advance to 60g CCHO diet when medically feasible 2) Encourage optimal PO intake 3) Refer to outpatient RD/CDCES for diabetes education 4) Continue to monitor I&O, labs, and skin integrity Expected Outcomes/Goals: 1) appetite and labs to improve 2) diet to advance 3) f/u in 3-5 days Visit Coding Cardiology RES Date of Service: Jan 15, 2025 Billing Provider: JADE HICKS Sr., MD, MARIA RESIDENT Jan 15, 2025 16:36
--- NOTE | 2025-01-15 16:54 | PRN ---
Misceleneous Note Note Note 01/15/2025 Subjective: Patient is doing better. He states that the nystatin is helping him as well as the Mylanta. Current Medications Medications (Trade) Dose Ordered Sig/Jorge Alberto Route PRN Reason Start Time Stop Time Status Last Admin Al Hydrox/Mg Hydrox/Simethicone (Maalox Plus) 30 ml Q6HP PRN GT FOR STOMACH DISTRESS 01/15/25 17:00 Levothyroxine Sodium (Synthroid Tablet) 100 mcg QAM@0600 PO 01/15/25 06:00 01/15/25 05:09 Nystatin (Mycostatin (Mouth-Throat)) 5 ml QID MT 01/15/25 18:00 Pantoprazole Sodium (Protonix) 40 mg DAILY IV 01/15/25 10:15 01/15/25 10:41 Physical examination Vital Signs Date Time Temp Pulse Resp B/P (MAP) Pulse Ox O2 Delivery O2 Flow Rate FiO2 01/15/25 16:11 99 16 157/101 01/15/25 12:38 98.6 97 98.6 01/15/25 08:00 Room Air* 0 21 Alert and oriented NC/AT EOMI PERRLA Regular rate rhythm Soft nontender nondistended No clubbing cyanosis or edema Impression: 1. DKA 2. Nausea and vomiting 3. Sore throat question candidal esophagitis versus irritation from nausea and vomiting Recommendations: 1. Continue with current medications 2. Increase GI meds Maalox to q.6 and 30 mL 3. Continue with nystatin 4. We will follow ROCAEL GONZALEZ MD Jan 15, 2025 16:54
[2025-01-15] MEDS: NYSTATIN (MOUTH-THROAT) 500,000 UNITS/5 ML SUSP MT SCH (16:57)
--- NOTE | 2025-01-15 18:05 | DVHPN2 ---
Subjective Patient currently off of insulin drip, patient has been difficulty swallowing her but currently tolerating diet. Changes from previous H/P or p: No Changes Gastrointestinal: Nausea, Vomiting Objective Vitals Vital Signs Date Time Temp Pulse Resp B/P (MAP) Pulse Ox O2 Delivery O2 Flow Rate FiO2 01/15/25 17:00 99.1 92 20 141/93 (109) 95 99.1 01/15/25 08:00 Room Air* 0 21 Intake/Output Intake and Output 01/15/25 07:00 Intake Total 600 ml Balance 600 ml Intake Oral 600 ml # Voids 4 Exam HEENT pupils are reactive Neck is supple CV is S1-S2 regular rate and rhythm Respiratory bilateral clear GI positive bowel sound Extremity no edema [employer] no motor deficit Medications Current Medications Medications Dose Ordered Sig/Jorge Alberto Route Start Time Stop Time Status Last Admin Dose Admin Ondansetron HCl 4 mg Q4HP PRN IV 01/13/25 04:00 01/15/25 16:01 4 MG Insulin Glargine 15 units QAM SC 01/13/25 04:00 01/13/25 04:52 15 UNITS Diagnostic Test (Pha) 1 strip IQ4HR 01/13/25 04:00 01/15/25 15:36 1 STRIP Insulin Human Regular IQ4HR SC 01/13/25 04:00 01/15/25 16:12 3 UNITS Dextrose 50 ml UD PRN IV 01/13/25 04:00 Hydromorphone HCl 0.25 mg Q4HPRN PRN IV 01/13/25 04:00 01/15/25 16:11 0.25 MG Levothyroxine Sodium 100 mcg QAM@0600 PO 01/15/25 06:00 01/15/25 05:09 100 MCG Sodium Chloride 1,000 ml @ 75 mls/hr [id number] IV 01/14/25 09:30 01/15/25 12:10 75 MLS/HR Ergocalciferol 50,000 unit Q7D PO 01/14/25 09:30 01/14/25 10:17 50,000 UNIT Lidocaine HCl 10 ml Q4HP PRN MT 01/14/25 16:15 01/14/25 16:29 10 ML Pantoprazole Sodium 40 mg DAILY IV 01/15/25 10:15 01/15/25 10:41 40 MG Nystatin 5 ml QID MT 01/15/25 18:00 01/15/25 16:57 5 ML Al Hydrox/Mg Hydrox/Simethicone 30 ml Q6HP PRN GT 01/15/25 17:00 01/15/25 16:57 30 ML Laboratory Results Laboratory Tests 01/14/25 05:42 01/15/25 05:22 Chemistry Test 01/15/25 05:22 Albumin 3.7 g/dL (3.2-4.8) Calcium Level 8.5 mg/dL (8.7-10.4) L Total Protein 6.1 g/dL (5.7-8.2) LFT Test 01/15/25 05:22 Alanine Aminotransferase (ALT) 22 U/L (7-40) Alkaline Phosphatase 71 U/L (46-116) Aspartate Amino Transferase (AST) 33 U/L (13-40) Total Bilirubin 1.2 mg/dL (0.2-1.0) H Urinalysis Test 01/12/25 22:15 01/14/25 04:37 Urine Color Colorless (Yellow) Urine Clarity Clear (Clear) Urine pH 5.0 (5.0-9.0) Urine Specific [place] 1.017 (1.001-1.035) Urine Protein Negative (Negative) Urine Ketones 1+ (Negative) H Urine Blood 1+ /uL (Negative) H Urine Nitrite Negative (Negative) Urine Bilirubin Negative (Negative) Urine Urobilinogen Normal mg/dL (Negative) Urine Leukocyte Esterase Negative /uL (Negative) Urine RBC <1 /hpf (0 - 3) Urine Microscopic WBC 1 /HPF (0-3) Urine Squamous Epithelial Cells None seen /hpf (<5) Urine Bacteria Few /hpf (None Seen) H Urine Mucus Few (None Seen) Urine Glucose 4+ mg/dL (Normal) H Urine Osmolality 757 mOsm/kg Urine Creatinine 112.37 mg/dL (30.0-125.0) Urine Sodium 198 mmol/L (40-220) Urine Total Protein 34.0 mg/dL (1-14) H Microbiology Microbiology Date/Time Source Procedure Growth Status 01/14/25 23:14 Nose MRSA Screen - Final Complete 01/14/25 04:37 Voided Urine Urine Culture - Preliminary Resulted 01/13/25 13:07 Blood Blood Culture - Preliminary NO GROWTH AFTER 48 HOURS OF INCUBATION. Resulted Assessment/Plan Assessment/Plan 39-year-old male with a known history of type 1 diabetes mellitus insulin- dependent who presented [facility] the hospital at [facility] for nausea and vomiting found to have NSTEMI as well as DKA eventually patient was transferred for higher level of care to [facility]. 1. Diabetic ketoacidosis, resolved currently off of insulin drip 2. Elevated troponin suspect NSTEMI type 1, status post coronary angiogram showing no significant coronary artery disease 3. Acute kidney injury suspected secondary to vasomotor nephropathy 4. Burning epigastric pain, improved dizziness stress respirations knelt on 5. Chronic alcoholism Protonix, GI consultation appreciated -continue medical management including aspirin statin, follow up Cardiology recommendation, resume home dose of insulin Lantus. Plan discussed with: Patient My Orders Orders - KRISTI LINO MD Procedure Category Date Status Time Full Liq Diet DIET 01/15/25 Transmitted Lunch * Infectious [place]- Dr. 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
[2025-01-16 01:00] VITALS: BP 147/91; PULSE 95; RESP 18; TEMP 98.9; O2SAT 95
[2025-01-16 05:00] VITALS: BP 138/82; PULSE 98; RESP 18; TEMP 99; O2SAT 95
[2025-01-16 08:00] VITALS: PULSE 95
[2025-01-16 09:00] VITALS: BP 149/94; PULSE 104; RESP 18; TEMP 99.1; O2SAT 96
--- NOTE | 2025-01-16 09:29 | DVHPN2 ---
Progress Note - Dictate Date Seen: Jan 16, 2025 Medical Necessity Reason Pt with a Central, PICC or Fol: No Subjective Patient is currently stable vital signs Vital Sign Date Time Temp Pulse Resp B/P (MAP) Pulse Ox O2 Delivery O2 Flow Rate FiO2 01/16/25 05:00 99.0 98 18 138/82 (100) 95 99.0 01/15/25 20:00 Room Air* 0 21 Total Intake and Output 01/15/25 01/15/25 01/16/25 15:00 23:00 07:00 Intake Total 50 ml 236 ml 450 ml Balance 50 ml 236 ml 450 ml medications Current Medications Medications Dose Ordered Sig/Jorge Alberto Route Start Time Stop Time Status Last Admin Dose Admin Ondansetron HCl 4 mg Q4HP PRN IV 01/13/25 04:00 01/15/25 21:48 4 MG Insulin Glargine 15 units QAM SC 01/13/25 04:00 01/13/25 04:52 15 UNITS Diagnostic Test (Pha) 1 strip IQ4HR 01/13/25 04:00 01/16/25 04:01 1 STRIP Insulin Human Regular IQ4HR SC 01/13/25 04:00 01/16/25 00:07 6 UNITS Dextrose 50 ml UD PRN IV 01/13/25 04:00 Hydromorphone HCl 0.25 mg Q4HPRN PRN IV 01/13/25 04:00 01/16/25 03:59 0.25 MG Levothyroxine Sodium 100 mcg QAM@0600 PO 01/15/25 06:00 01/16/25 05:13 100 MCG Sodium Chloride 1,000 ml @ 75 mls/hr [id number] IV 01/14/25 09:30 01/16/25 01:30 75 MLS/HR Ergocalciferol 50,000 unit Q7D PO 01/14/25 09:30 01/14/25 10:17 50,000 UNIT Lidocaine HCl 10 ml Q4HP PRN MT 01/14/25 16:15 01/14/25 16:29 10 ML Pantoprazole Sodium 40 mg DAILY IV 01/15/25 10:15 01/15/25 10:41 40 MG Nystatin 5 ml QID MT 01/15/25 18:00 01/16/25 05:13 5 ML Al Hydrox/Mg Hydrox/Simethicone 30 ml Q6HP PRN GT 01/15/25 17:00 01/16/25 00:08 30 ML objective General: Patient appears alert, comfortable and well-appearing. HEENT: Normocephalic, atraumatic, Sclera anicteric, conjunctiva clear, No nasal discharge or congestion. Mucous membranes moist, no tonsillar erythema or exudates. Neck: No cervical lymphadenopathy or masses. No neck stiffness. Lungs: Breath sounds clear bilaterally, no wheezes, rales, or rhonchi. No use of accessory muscles or respiratory distress. Cardiovascular: Regular rate and rhythm, no murmurs, rubs, or gallops. Abdomen: Soft, non-tender, non-distended. Bowel sounds present in all quadrants. No hepatosplenomegaly or masses. Skin: No rash, petechiae, or ecchymosis. Extremities: No edema, cyanosis, or clubbing. No tenderness to palpation, erythema, or swelling in joints. No signs of deep vein thrombosis (DVT). Neurologic: Patient is alert and oriented to person, place, and time. Cranial nerves II-XII intact. Motor strength 5/5 bilaterally in all extremities. laboratory and microbiology Laboratory Tests 01/15/25 05:22 01/14/25 05:42 Test 01/15/25 05:22 Range/Units Serum Glucose 180 H 74-106 mg/dL Assessment/Plan Sorethroat Nausea/ Vomiting DKA NSTEMI ALEA DM type 1 recommendations Blood cultures prelim negative urine cultures GI consult Sorethroat is likely secondary to vomiting but rule out viral illness.COVID/ flu is negatibe on nystatin swish Kidney US pending Cardiology/ GI is consulted DKA management by primary team thank you for consult Time spent 50 minutes during encounter Dietary Evaluation Review Recommendations by RD: Dietary education by RD Comments: 1) Advance to 60g CCHO diet when medically feasible 2) Encourage optimal PO intake 3) Refer to outpatient RD/CDCES for diabetes education 4) Continue to monitor I&O, labs, and skin integrity Expected Outcomes/Goals: 1) appetite and labs to improve 2) diet to advance 3) f/u in 3-5 days Plan discussed with: CHERY Rico MD Jan 16, 2025 09:29
[2025-01-16] MEDS ORDERED: PANTOPRAZOLE 40 MG/10 ML VIAL INJ IV SCH (10:00)
[2025-01-16 13:00] VITALS: BP 134/91; PULSE 97; RESP 16; TEMP 99.6; O2SAT 96
--- NOTE | 2025-01-16 13:56 | DVHSR ---
APPROVED REPORT EXAM: Two-dimensional and M-mode echocardiogram with Doppler and color Doppler. Blood Pressure: 116/74 mmHg INDICATION NSTEMI RISK FACTORS Height: 5'11, Weight: 151 DIMENSIONS LVDd4.1 (3.8-5.7cm)LA (2D)3.1 (1.9-4.0cm)Aortic Root3.2 (2.0-3.7cm) LVDs2.7 (2.5-4.0cm)LA (MM) (1.9-4.0cm)Aortic Cusp Exc1.8 (1.5-2.0cm) EF (%) 60.0 (55-70%)Rt. Atrium4.3 (1.9-4.0cm)Asc. Aorta3.1 cm IVSd0.9 (0.7-1.1cm)RV (D)4.1 (1.8-2.4cm) PWd0.9 (0.7-1.1cm) Mitral Valve MitralMitral Stenosis E wave0.71m/sMV Mean GR.mmHg A wave0.63m/sMV Peak GR.mmHg E/A ratio1.12D MVAcm2 DECEL [id number] 1/2 Timems Aortic Valve Aortic ValveAortic Stenosis V11.01m/Jennifer Mean GR.mmHg V21.22m/Jennifer Peak GR.6mmHg LVOT Diameter2.1 (1.8-2.4cm)Doppler AVA2.87cm2 Pulmonic Valve V20.79m/s Tricuspid Valve TR Velocity2.21m/s [id number] Conclusion lvef 60% normal rv function normal atria no severe valve abnormaliteis noted asked to read echo 1 hour ago
[2025-01-16] MEDS ORDERED: LEVO75TA6 PO (15:24)
[2025-01-16] MEDS ORDERED: NYS5LQ MT (15:24)
[2025-01-16] MEDS ORDERED: PANT40TA2 PO (15:24)
--- NOTE | 2025-01-16 15:28 | DVHDS2 ---
Discharge Summary Date of Admission Jan 13, 2025 at 04:11 Date of Discharge: Jan 16, 2025 Labs/Diagnostic Data: Laboratory Results Test 01/16/25 11:47 01/15/25 05:22 01/14/25 10:20 01/14/25 05:42 POC Glucose 208 mg/dl (70-106) Sodium Level 134 mmol/L (136-145) Potassium Level 4.1 mmol/L (3.5-5.1) Chloride Level 98 mmol/L (98-107) Carbon Dioxide Level 25 mmol/L (20-31) Anion Gap 11 (5-15) Blood Urea Nitrogen 13 mg/dL (9-23) Creatinine 1.04 mg/dL (0.700-1.30) Glomerular Filtration Rate Calc 94 mL/min (>90) BUN/Creatinine Ratio 12.5 (10.0-20.0) Serum Glucose 180 mg/dL (74-106) Calcium Level 8.5 mg/dL (8.7-10.4) Total Bilirubin 1.2 mg/dL (0.2-1.0) Aspartate Amino Transferase (AST) 33 U/L (13-40) Alanine Aminotransferase (ALT) 22 U/L (7-40) Alkaline Phosphatase 71 U/L (46-116) Total Protein 6.1 g/dL (5.7-8.2) Albumin 3.7 g/dL (3.2-4.8) Creatine Kinase 386 U/L (46-171) Thyroid Peroxidase Antibodies 374 IU/mL (0-34) Thyrotropin Receptor Antibody <1.10 IU/L (0.00-1.75) White Blood Count 4.7 10^3/uL (4.4-10.8) Red Blood Count 4.19 10^6/uL (4.5-5.90) Hemoglobin 13.5 g/dL (13.5-17.5) Hematocrit 39.4 % (41.0-53.0) Mean Corpuscular Volume 94.0 fL (80.0-100.0) Mean Corpuscular Hemoglobin 32.3 pg (28.0-32.0) Mean Corpuscular Hemoglobin Concent 34.3 g/dL (32.0-36.0) Red Cell Distribution Width 13.3 % (11.8-14.3) Platelet Count 216 10^3/uL (140-450) Mean Platelet Volume 7.3 fL (6.9-10.8) Neutrophils (%) (Auto) 82.0 % (37.0-80.0) Lymphocytes (%) (Auto) 12.2 % (10.0-50.0) Monocytes (%) (Auto) 5.5 % (0.0-12.0) Eosinophils (%) (Auto) 0.1 % (0.0-7.0) Basophils (%) (Auto) 0.2 % (0.0-2.0) Neutrophils # (Auto) 3.9 10 ^3/uL (1.6-8.6) Lymphocytes # (Auto) 0.6 10 ^3/uL (0.4-5.4) Monocytes # (Auto) 0.3 10 ^3/uL (0-1.3) Eosinophils # (Auto) 0 10 ^3/uL (0-0.8) Basophils # (Auto) 0 10 ^3/uL (0-0.2) Nucleated Red Blood Cells 0.1 % Troponin I High Sensitivity 5926 ng/L (</=54) Free Thyroxine (T4) Calculated 0.89 ng/dL (0.89-1.76) Total Triiodothyronine (TT3) 0.91 ng/mL (0.60-1.81) Test 01/14/25 04:37 01/13/25 23:14 01/13/25 11:36 01/13/25 07:25 Urine Osmolality 757 mOsm/kg Urine Creatinine 112.37 mg/dL (30.0-125.0) Urine Sodium 198 mmol/L (40-220) Urine Total Protein 34.0 mg/dL (1-14) Urine Opiates Screen Neg (NEGATIVE) Urine Fentanyl Screen Neg (NEGATIVE) Urine Barbiturates Screen Neg (NEGATIVE) Urine Phencyclidine Screen Neg (NEGATIVE) Urine Amphetamines Screen Neg (NEGATIVE) Urine Benzodiazepines Screen Pos (NEGATIVE) Urine Cocaine Screen Neg (NEGATIVE) Urine Cannabinoids Screen Neg (NEGATIVE) Influenza Type A Antigen Negative (Negative) Influenza Type B Antigen Negative (Negative) SARS-CoV-2 Antigen (Rapid) Negative (NEGATIVE) Hemoglobin A1c 9.1 % A1C (<5.7) Lactic Acid Level 1.2 mmol/L (0.4-2.0) Phosphorus Level 2.7 mg/dL (2.4-5.1) Magnesium Level 2.0 mg/dL (1.6-2.6) Triglycerides Level 76 mg/dL (< 150) Cholesterol Level 133 mg/dL (< 200) LDL Cholesterol 51 mg/dL (< 100) HDL Cholesterol 66 mg/dL (40-59) Lipase 20 U/L (12-53) Vitamin B12 Level 575 pg/mL (211-911) Vitamin D 25-Hydroxy 16.2 ng/mL (30.0-100) Thyroid Stimulating Hormone (TSH) 28.55 uIU/mL (0.55-4.78) Prothrombin Time 11.5 sec (9.3-11.8) Prothrombin Time INR 1.09 (0.9-1.15) Activated Partial Thromboplast Time 59.3 SEC (24.5-34.5) Test 01/13/25 04:37 01/12/25 22:25 01/12/25 22:15 01/12/25 22:12 Serum Osmolality 300 mOsm/kg (278-298) Blood Gas Specimen Type Arterial Blood Gas Sample Site Left radial Blood Gas Patient Temperature 37.0 Arterial Blood Date Drawn [id number] Arterial Blood pH 7.533 (7.350-7.450) Arterial Blood Partial Pressure CO2 31.4 mmHg (35.0-48.0) Arterial Blood Partial Pressure O2 73.5 mmHg (83.0-108.0) Arterial Blood HCO3 25.8 mmol/L (21.0-28.0) Arterial Blood Oxygen Saturation 95.9 % (94.0-98.0) Arterial Blood Base Excess 3.8 mmol/L (-2.0-3.0) Arterial Blood Oxyhemoglobin 94.6 % (94.0-98.0) Arterial Blood Carboxyhemoglobin 0.8 % (0.5-1.5) Arterial Blood Methemoglobin 0.6 % (0.0-1.5) Thomas Test Modified Blood Gas Total Hemoglobin 13.60 g/dL (13.5-17.5) Blood Gas Modality Room air FiO2 % 21.0 Urine Color Colorless (Yellow) Urine Clarity Clear (Clear) Urine pH 5.0 (5.0-9.0) Urine Specific [place] 1.017 (1.001-1.035) Urine Protein Negative (Negative) Urine Ketones 1+ (Negative) Urine Blood 1+ /uL (Negative) Urine Nitrite Negative (Negative) Urine Bilirubin Negative (Negative) Urine Urobilinogen Normal mg/dL (Negative) Urine Leukocyte Esterase Negative /uL (Negative) Urine RBC <1 /hpf (0 - 3) Urine Microscopic WBC 1 /HPF (0-3) Urine Squamous Epithelial Cells None seen /hpf (<5) Urine Bacteria Few /hpf (None Seen) Urine Mucus Few (None Seen) Urine Glucose 4+ mg/dL (Normal) Beta-Hydroxybutyric Acid 2.395 mmol/L (< 0.4) Other Laboratory Tests 01/15/25 05:22 01/14/25 05:42 Brief Hx & Hospital Course: 39-year-old male with a known history of type 1 diabetes mellitus insulin- dependent who presented to the hospital at [facility] for nausea and vomiting found to have NSTEMI as well as DKA eventually patient was transferred for higher level of care to [facility]. Patient was found to have NSTEMI type 1 status post coronary angiogram showing normal coronary arteries. Patient diabetic ketoacidosis posterior with IV insulin which is currently resolved. Patient also is complaining of burning epigastric pain which was suspected to throat irritation from excessive nausea vomiting. Patient about treated for cancer questionable [place]peranza esophagitis as per GI medications. Patient's symptoms are much better he is requesting to go home. Patient does not known history of chronic alcoholism outpatient drug rehab has been recommended at complete alcoholic abstinence was recommended. All the questions were answered. Patient is being discharged under stable condition. Patient was found to have high thyroid peroxidase antibodies was treated with levothyroxine p.o., outpatient follow up with endocrinology has been recommended with repeat TSH, free T4 and free T3. s. Condition at Discharge: Stable Final Diagnosis/Problems List 39-year-old male with a known history of type 1 diabetes mellitus insulin-dependent who presented to the hospital at [facility] for nausea and vomiting found to have NSTEMI as well as DKA eventually patient was transferred for higher level of care to [facility]. 1. Diabetic ketoacidosis, resolved currently off of insulin drip 2. Elevated troponin suspect NSTEMI type 1, status post coronary angiogram showing no significant coronary artery disease 3. Acute kidney injury suspected secondary to vasomotor nephropathy 4. Burning epigastric pain, improved dizziness stress respirations knelt on 5. Chronic alcoholism Protonix, GI consultation appreciated -continue medical management including aspirin statin, follow up Cardiology recommendation, resume home dose of insulin Lantus. Discharge Disposition: Home SNF Discharge Will this Physician continue t: No Discharge Instruct/Medications Diet: Cardiac 2g Na,low cholest Diet comment: 1800 ADA diet Activity: No Restrictions, As Tolerated Follow Up/Referral: Follow up with PCP in one week Follow up with endocrinology Dr. Caden Yousif in 1-2 Medications: Levothyroxine, Protonix, nystatin swish and swallow as prescribed. New Medications: Levothyroxine Sodium (Levothyroxine Sodium) 75 Mcg Tab 1 TAB PO DAILY, #30 TAB 5 Refills Pantoprazole Sodium Sesquihydr (Protonix) 40 Mg Tab 40 MG PO DAILY, #30 TAB Nystatin (Mouth-Throat) (Mycostatin (Mouth-Throat)) 500,000 Units/5 Ml Ss 5 ML MT QID for 14 Days, #280 ML Continued Medications: Insulin Glargine (Lantus) 100 Unit/Ml Inj 25 UNIT SC, INJ Insulin Lispro (Human) (Humalog) 100 Unit/Ml Inj 100 UNIT SC, INJ Scheduled Levothyroxine Sodium (Levothyroxine Sodium), 1 TAB PO DAILY Nystatin (Mouth-Throat) (Mycostatin (Mouth-Throat)), 5 ML MT QID Pantoprazole Sodium Sesquihydr (Protonix), 40 MG PO DAILY Miscellaneous Medications Insulin Glargine (Lantus), 25 UNIT SC, (Reported) Insulin Lispro (Human) (Humalog), 100 UNIT SC, (Reported) Discharge Statement: "Patient was advised to return to the ER or call 911 if any headaches, dizziness, shortness of breath, chest pain, abdominal pain, bleeding, fevers, or worsening of medical condition. Patient was counseled about treatment plan, medications, possible side effects, patientverbalized understanding. All questions were answered to the best of my ability. This discharge took greater then 30 minutes in planning, reviewing documentation, counseling the patient, and discussing with other team members." ASSESSMENT ASSESSMENT Assessment 39-year-old male with a known history of type 1 diabetes mellitus insulin- dependent who presented to the hospital at [facility] for nausea and vomiting found to have NSTEMI as well as DKA eventually patient was transferred for higher level of care to [facility]. 1. Diabetic ketoacidosis, resolved currently off of insulin drip 2. Elevated troponin suspect NSTEMI type 1, status post coronary angiogram showing no significant coronary artery disease 3. Acute kidney injury suspected secondary to vasomotor nephropathy 4. Burning epigastric pain, improved dizziness stress respirations knelt on 5. Chronic alcoholism Protonix, GI consultation appreciated -continue medical management including aspirin statin, follow up Cardiology recommendation, resume home dose of insulin Lantus. Date of Service: Jan 16, 2025 Billing Provider: KRISTI LINO MD Common Visit Codes: NOT BILLABLE KRISTI LINO MD Jan 16, 2025 15:28
--- NOTE | 2025-01-16 16:45 | PRN ---
Misceleneous Note Note Note 01/16/2025 Subjective: Patient is doing better with his current medications including nystatin, Current Medications Medications (Trade) Dose Ordered Sig/Jorge Alberto Route PRN Reason Start Time Stop Time Status Last Admin Pantoprazole Sodium (Protonix) 40 mg DAILY IV 01/16/25 10:00 01/15/25 10:04 DC Nystatin (Mycostatin (Mouth-Throat)) 5 ml QID MT 01/15/25 18:00 01/16/25 11:52 Al Hydrox/Mg Hydrox/Simethicone (Maalox Plus) 30 ml Q6HP PRN GT FOR STOMACH DISTRESS 01/15/25 17:00 01/16/25 00:08 Vital Signs Date Time Temp Pulse Resp B/P (MAP) Pulse Ox O2 Delivery O2 Flow Rate FiO2 01/16/25 14:21 88 16 155/90 01/16/25 13:00 99.6 96 99.6 01/16/25 08:00 Room Air* 0 21 General: Well-developed well-nourished HEENT: NC/AT EOMI PERRLA O/P clear, no JVD or cervical lymphadenopathy, no scleral icterus Heart: Regular rate and rhythm, no murmurs rubs or gallops Lungs: Clear to auscultation bilaterally, no wheezes rales or rhonchi Abdomen: Soft, nontender, nondistended, no organomegaly, normoactive bowel sounds Extremity: No clubbing cyanosis or edema, no rashes or bruises Neuro: Cranial nerves 2-12 grossly intact, moves all four extremities, no asterixis Impression: DKA Nausea and vomiting Throat pain Suspect throat pain is likely candidal versus irritation from nausea and vomiting Patient doing better non Maalox as well as nystatin and PPI Recommendations 1. Continue current medications 2. Consider Esophagogastroduodenoscopy as outpatient if symptoms persist or worsen 3. I will be signing off ROCAEL GONZALEZ MD Jan 16, 2025 16:45
[2025-01-16 17:00] VITALS: BP 147/90; PULSE 81; RESP 18; TEMP 98.9; O2SAT 97
== END 2025-01-16 18:23 | disposition home or self-care (01) | DRG 280 ==
LOC: EDBD 22:00 → EDUNIT# 22:00 → ER 22:07 → OVERFLOW 01-13 04:11 → TELE-EAST 01-13 18:39
PROVIDERS: ADMIT Internal Medicine; ATTEND Internal Medicine
PROC: 4A023N7 Measurement of Cardiac Sampling and Pressure, Left Heart, Percutaneous Approach (ICD-10-PCS; principal; 2025-01-13)
PROC: B211YZZ Fluoroscopy of Multiple Coronary Arteries using Other Contrast (ICD-10-PCS; 2025-01-13)
PROC: B215YZZ Fluoroscopy of Left Heart using Other Contrast (ICD-10-PCS; 2025-01-13)
DX: I21.4 Non-ST elevation (NSTEMI) myocardial infarction (principal); E10.10 Type 1 diabetes mellitus with ketoacidosis without coma; N17.0 Acute kidney failure with tubular necrosis; B37.81 Candidal esophagitis; D64.9 Anemia, unspecified; E78.5 Hyperlipidemia, unspecified; N40.0 Benign prostatic hyperplasia without lower urinary tract symptoms; Z20.822 Contact with and (suspected) exposure to COVID-19; E03.9 Hypothyroidism, unspecified; E55.9 Vitamin D deficiency, unspecified; F10.20 Alcohol dependence, uncomplicated; J02.9 Acute pharyngitis, unspecified; Y90.9 Presence of alcohol in blood, level not specified; Z87.891 Personal history of nicotine dependence; Z80.42 Family history of malignant neoplasm of prostate; Z79.4 Long term (current) use of insulin
CPT/HCPCS: 36415; 36600; 71045; 76775; 80048; 80053; 80061; 80307; 81001; 82010; 82306; 82550; 82570; 82607; 82805; 82962; 83036; 83605; 83690; 83735; 83930; 83935; 84100; 84154; 84156; 84300; 84439; 84443; 84480; 84484; 85025; 85610; 85730; 86376; 86800; 87040; 87081; 87086; 87426; 87804; 93005; 93306; 93458; 96361; 96374; 96375; 96376; 99152; G0378; J1815; J2250; J2405; J2470; Q9967